=== PATIENT | female | born 1930 | race Caucasian/White ===

== ENCOUNTER 2016-06-15 19:16 | Inpatient (IN) | payer MEDICARE, BC ==
[~2016-06-15 19:16] MED LIST: cefTRIAXone 1 GM in Sodium Chloride 0.9% 100 ML IV SCH
[2016-06-15] MEDS ORDERED: Sodium Chloride 0.9% 10 ML Syringe FLUSH PRN (19:27)
--- NOTE | 2016-06-15 19:29 | EDM.PDOC ---
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 Vein Open Discontinued Medications Generic Name Dose Route Start Last Admin Trade Name Jacob PRN Reason Stop Dose Admin Sodium Chloride 500 mls @ 999 mls/hr 06/15/16 19:49 06/15/16 19:52 Normal Saline IV 06/15/16 20:19 999 mls/hr .BOLUS ONE Administration Ceftriaxone Sodium 1 gm/ 100 mls @ 200 mls/hr 06/15/16 21:34 06/15/16 21:43 Sodium Chloride IV 06/15/16 22:03 200 mls/hr ONETIME ONE Administration Levofloxacin/Dextrose 500 mg/ 100 mls @ 100 mls/hr 06/15/16 21:37 06/15/16 22 :24 Premix IV 06/15/16 22:36 100 mls/hr ONETIME ONE Administration Ceftriaxone Sodium 1 gm/ 100 mls @ 200 mls/hr 06/15/16 09:00 Sodium Chloride IV Q24H [place] Ondansetron HCl 4 mg 06/15/16 23:27 06/15/16 23:33 Zofran IVPUSH 06/15/16 23:28 4 mg ONETIME ONE Administration - Re-Assessments/Exams Free Text/Narrative Re-Assessment/Exam: 06/15/16 20:33. I was concerned after exam for urinary tension. Bladder scan did confirm that she was retaining with around 618 meals showing on the scan. In concern for UTI, possible pyelonephritis. It Was intended to do a catheter UA. With her urinary retention we will place a Trotter catheter for now. 06/15/16 21:30. Labs do show UTI with increased bacteria in the urine, this was a catheter sample so should have been sterile. She feels much better after getting her bladder decompressed. White blood count is okay but she does have a left shift. Her temp was 99.5 on arrival, we did get blood cultures x2 and also I have ordered a urine culture. Blood pressure is improved after 500 cc fluid bolus. We're continuing to run normal saline at 150 an hour. Of note her liver function studies are all elevated with AST of 720, ALT 409, alkaline phosphatase 237 bilirubin 2.0. When questioned further she has been having some upper, middle and lower chest discomfort for about a week or so. She believes that she did have her gallbladder out in [place] about 6-8 years ago. On evaluation of her abdomen I don't see a scar. It may have been done laparoscopic. She does not remember that part of it. I discussed this with Dr. Pulliam, Hospitalist for admission. He would like her to have CT of abdomen and pelvis prior to being admitted to better see what's going on upper abdomen. Her lower abdomen is fairly nontender now but she does continue to have the right upper quadrant and upper mid abdominal tenderness. Have ordered Rocephin 1 g IV. I was going to also give Zosyn IV but she does have history of penicillin allergy. Therefore we will give Levaquin 500 IV after the Rocephin has infused. 06/16/16 00:15. Radiology report shows a fullness in the pancreatic head with hypoechoic areas, common bile duct dilatation. This raises great concern for neoplasm. I discussed this with patient and also with the son who was here a while ago and now on his way home. At this time we work hard to treat the UTI, maintain hydration, work with nausea and vomiting, try keep her more comfortable and then go from there. 06/16/16 00:29 Departure - Departure Time of Disposition: 00:23 Disposition: Admitted As Inpatient 68 Clinical Impression: UTI (urinary tract infection), Urinary retention with incomplete bladder emptying, Pancreatic abnormality Referrals: Norbert Brown MD [Primary Care Provider] - Forms: ED Department Discharge ED Communication - Discussed Case With (1) Discussed Case With (1): Admitting Provider (Dr Pulliam, decision to admit at about 11:00) - My Orders Last 24 Hours: My Active Orders 06/15/16 19:27 Sodium Chloride 0.9% [Saline Flush] 10 ml FLUSH ASDIRECTED PRN 06/15/16 19:28 Peripheral IV Care [RC] . DIRECTED CULTURE BLOOD [BC] Stat Peripheral IV Insertion Adult [OM.PC] Stat 06/15/16 20:14 Trotter Catheter Insertion [Insert Urinary Catheter] [OM.PC] Stat Urinary Catheter Assessment [RC] ASDIRECTED 06/15/16 20:15 CULTURE BLOOD [BC] Stat 06/15/16 20:26 Abdomen Series w Chest 1V [CR] Stat 06/15/16 20:46 CULTURE URINE [RM] Stat 06/15/16 21:01 EKG 12 Lead [EKG Documentation Completion] [RC] STAT 06/15/16 21:34 Abdomen Pelvis w Cont [CT] Stat 06/16/16 00:15 Sodium Chloride 0.9% [Normal Saline] 1,000 ml IV ASDIRECTED - Assessment/Plan Last 24 Hours: My Active Orders 06/15/16 19:27 Sodium Chloride 0.9% [Saline Flush] 10 ml FLUSH ASDIRECTED PRN 06/15/16 19:28 Peripheral IV Care [RC] . DIRECTED CULTURE BLOOD [BC] Stat Peripheral IV Insertion Adult [OM.PC] Stat 06/15/16 20:14 Trotter Catheter Insertion [Insert Urinary Catheter] [OM.PC] Stat Urinary Catheter Assessment [RC] ASDIRECTED 06/15/16 20:15 CULTURE BLOOD [BC] Stat 06/15/16 20:26 Abdomen Series w Chest 1V [CR] Stat 06/15/16 20:46 CULTURE URINE [RM] Stat 06/15/16 21:01 EKG 12 Lead [EKG Documentation Completion] [RC] STAT 06/15/16 21:34 Abdomen Pelvis w Cont [CT] Stat 06/16/16 00:15 Sodium Chloride 0.9% [Normal Saline] 1,000 ml IV ASDIRECTED
[2016-06-15] MEDS ORDERED: Sodium Chloride 0.9% 500 ML IV ONE (19:49)
[2016-06-15] MEDS ORDERED: cefTRIAXone 1 GM in Sodium Chloride 0.9% 100 ML IV ONE (21:34)
[2016-06-15] MEDS ORDERED: Levofloxacin/Dextrose 5%-Water 500 MG in Premix Bag 1 BAG IV ONE (21:37)
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
[2016-06-15] MEDS ORDERED: Lactulose Soln 10 GM/15 ML 30 ML UD Cup PO PRN (23:03)
[2016-06-15] MEDS ORDERED: Acetaminophen 325 MG Tab PO PRN (23:03)
[2016-06-15] MEDS ORDERED: Bisacodyl 10 MG Supp RECTAL PRN (23:03)
[2016-06-15] MEDS ORDERED: Magnesium Hydroxide 400 MG/5 ML Susp 30 ML Cup PO PRN (23:03)
[2016-06-15] MEDS ORDERED: Aluminum Hydroxide/Magnesium Hydroxide/Simethicone Susp 30 ML Cup PO PRN (23:03)
[2016-06-15] MEDS ORDERED: Albuterol 0.083% 2.5 MG/3 ML Neb Soln NEB PRN (23:07)
[2016-06-15] MEDS ORDERED: Ondansetron 4 MG/2 ML SDV IV PRN (23:07)
[2016-06-15] MEDS ORDERED: Bisacodyl 5 MG Tab PO PRN (23:07)
[2016-06-15] MEDS ORDERED: Promethazine 12.5 MG in Sodium Chloride 0.9% 50 ML IV PRN (23:07)
[2016-06-15] MEDS ORDERED: Metoprolol Tartrate 5 MG/5 ML SDV IVPUSH PRN (23:11)
[2016-06-15] MEDS ORDERED: hydrALAZINE 20 MG/ML SDV IVPUSH PRN (23:11)
[2016-06-15] MEDS ORDERED: Ondansetron 4 MG/2 ML SDV IVPUSH ONE (23:27)
[2016-06-15] MEDS ORDERED: 50% Dextrose in Water 50 ML Syringe IVPUSH PRN (23:41)
[2016-06-15] MEDS ORDERED: Insulin Aspart 100 Units/ML 3 ML Pen SUBCUT SCH (23:45)
[2016-06-16] MEDS ORDERED: Sodium Chloride 0.9% 1,000 ML IV SCH (00:15)
[2016-06-16] MEDS: HYDROmorphone 0.5 MG/0.5 ML Syringe IVPUSH PRN (01:55)
[2016-06-16] MEDS: Sodium Chloride 0.9% 1,000 ML IV SCH ×2 (06:24→11:07)
[2016-06-16] MEDS: Pantoprazole 40 MG Tab.CR PO SCH (06:28)
--- NOTE | 2016-06-16 07:28 | PCM.PN ---
- General Info Date of Service: 06/16/16 Admission Dx/Problem (Free Text): Abdominal Pain Subjective Update: Follow Up Functional Status: Reports: pain controlled, tolerating diet, urinating, new symptoms. Denies: ambulating - Review of Systems General: Denies: Fever, Weakness, Fatigue, Malaise, Chills, Night Sweats HEENT: Reports: no symptoms, headaches Pulmonary: Denies: shortness of breath Cardiovascular: Denies: Chest Pain, Palpitations, Dyspnea on Exertion Gastrointestinal: Reports: Other (rectal pain). Denies: Abdominal pain, Nausea , Vomiting Genitourinary: Reports: no symptoms Musculoskeletal: Reports: no symptoms Skin: Reports: no symptoms Neurological: Reports: Difficulty Walking, Gait Disturbance. Denies: Dizziness Psychiatric: Denies: depression, mood lability, anxiety, agitation, hallucinations Systems Review Comment:: No overnight or acute issues. She slept well overnight. She has no GI complaints. She reports TORRES and hemorrhoidal pain. Her UA is pos to Lactobacillus species and her blood culture is pos for GNR x 4 bottles. She has no new complaints. - Patient Data Vitals - most recent: Last Vital Signs Temp 37.3 C 06/16/16 04:56 Pulse 92 06/16/16 04:56 Resp 18 06/16/16 04:56 BP 124/66 06/16/16 04:56 Pulse Ox 94 L 06/16/16 04:56 Weight - most recent: 67.993 kg I&O - last 24 hours: Intake & Output 06/15/16 06/16/16 06/16/16 22:59 06:59 14:59 Intake Total 723 Output Total 1100 Balance -377 Lab Results last 24 hrs: Laboratory Results - last 24 hr 06/16/16 06/16/16 Range/Units 04:46 06:26 POC Glucose 131 H (83-110) mg/dL MRSA (PCR) Negative Med Orders - Current: Current Medications Acetaminophen (Tylenol) 325 mg PO Q6H PRN PRN Reason: Pain Hydrocodone Bitart/Acetaminophen ([place] 325-5 Mg) 1 tab PO Q4H PRN PRN Reason: Pain (moderate 4-6) Al Hydroxide/Mg Hydroxide (Mag-Al Plus) 30 ml PO QID PRN PRN Reason: Heartburn Albuterol (Proventil Neb Soln) 2.5 mg NEB Q2H PRN PRN Reason: Shortness Of Breath/wheezing Aspirin (Halfprin) 81 mg PO DAILY [facility] Bisacodyl (Dulcolax) 10 mg RECTAL DAILY PRN PRN Reason: Constipation Bisacodyl (Dulcolax) 5 mg PO DAILY PRN PRN Reason: Constipation Cholecalciferol (Vitamin D3) 1,000 units PO DAILY [facility] Cyanocobalamin (Vitamin B12) 1,000 mcg PO DAILY [facility] Dextrose/Water (Dextrose 50% In Water) 50 ml IVPUSH ASDIRECTED PRN PRN Reason: Hypoglycemia Docusate Sodium (Colace) 100 mg PO BID [facility] Enoxaparin Sodium (Lovenox) 30 mg SUBCUT DAILY [facility] Fentanyl (Duragesic) 12 mcg TRDERM Q72H [facility] Ferrous Sulfate (Ferrous Sulfate) 325 mg PO DAILY [facility] Hydralazine HCl (Apresoline) 10 mg IVPUSH Q4H PRN PRN Reason: Hypertension Hydromorphone HCl (Dilaudid) 0.25 mg IVPUSH Q2H PRN PRN Reason: Pain (severe 7-10) Last Admin: 06/16/16 01:55 Dose: 0.25 mg Promethazine HCl 12.5 mg/ (Sodium Chloride) 50.5 mls @ 100 mls/hr IV Q6H PRN PRN Reason: Nausea/Vomiting Sodium Chloride (Normal Saline) 1,000 mls @ 50 mls/hr IV ASDIRECTED [facility] Last Admin: 06/16/16 06:24 Dose: 50 mls/hr Sodium Chloride (Normal Saline) 1,000 mls @ 150 mls/hr IV ASDIRECTED [facility] Last Admin: 06/16/16 00:13 Dose: 150 mls/hr Ceftriaxone Sodium 1 gm/ (Sodium Chloride) 100 mls @ 200 mls/hr IV Q24H [facility] Insulin Aspart (Novolog) 0 unit SUBCUT ASDIRECTED [facility] PRN Reason: Protocol Insulin Detemir (Levemir) 0 unit SUBCUT BEDTIME [facility] Isosorbide Mononitrate (Imdur) 15 mg PO DAILY [facility] Lactulose (Cephulac) 10 gm PO DAILY PRN PRN Reason: Constipation Levothyroxine Sodium (Levothyroxine) 175 mcg PO ACBRK [facility] Last Admin: 06/16/16 06:28 Dose: 175 mcg Losartan Potassium (Cozaar) 25 mg PO DAILY [facility] Magnesium Hydroxide (Milk Of Magnesia) 30 ml PO DAILY PRN PRN Reason: Constipation Magnesium Sulfate (Pharmacy To Dose - Magnesium Replacement) 1 dose .XX ASDIRECTED [facility] Metoprolol Succinate (Toprol Xl) 25 mg PO DAILY [facility] Metoprolol Tartrate (Lopressor) 5 mg IVPUSH Q4H PRN PRN Reason: Tachycardia Miscellaneous Information (Remove Patch) 0 ea TRDERM Q72H [facility] Multivitamins (Thera) 1 each PO DAILY [facility] Ondansetron HCl (Zofran) 4 mg IV Q6H PRN PRN Reason: Nausea/Vomiting Pantoprazole Sodium (Protonix) 40 mg PO DAILY@0700 [facility] Last Admin: 06/16/16 06:28 Dose: 40 mg Cranberry Extract [ (Cranberry] 400 Mg) 0 each PO BID [facility] Hydrocortisone 30 Gm 0 each TOP BID [facility] Liraglutide 1.2 Mg 0 each SUBCUT BEDTIME [facility] Polyethylene Glycol (Miralax) 17 gm PO DAILY [facility] Potassium Chloride (Pharmacy To Dose - Potassium Replacement) 1 dose .XX ASDIRECTED [facility] Senna/Docusate Sodium (Senna Plus) 1 tab PO BID PRN PRN Reason: Constipation Sodium Chloride (Saline Flush) 10 ml FLUSH ASDIRECTED PRN PRN Reason: Keep Vein Open Last Admin: 06/15/16 19:52 Dose: 10 ml Discontinued Medications Sodium Chloride (Normal Saline) 500 mls @ 999 mls/hr IV .BOLUS ONE Stop: 06/15/16 20:19 Last Admin: 06/15/16 19:52 Dose: 999 mls/hr Ceftriaxone Sodium 1 gm/ (Sodium Chloride) 100 mls @ 200 mls/hr IV ONETIME ONE Stop: 06/15/16 22:03 Last Admin: 06/15/16 21:43 Dose: 200 mls/hr Levofloxacin/Dextrose 500 mg/ (Premix) 100 mls @ 100 mls/hr IV ONETIME ONE Stop: 06/15/16 22:36 Last Admin: 06/15/16 22:24 Dose: 100 mls/hr Ceftriaxone Sodium 1 gm/ (Sodium Chloride) 100 mls @ 200 mls/hr IV Q24H [facility] Ondansetron HCl (Zofran) 4 mg IVPUSH ONETIME ONE Stop: 06/15/16 23:28 Last Admin: 06/15/16 23:33 Dose: 4 mg - Exam General: alert, oriented, cooperative, no acute distress HEENT: Pupils equal, Pupils reactive, EOMI, Mucous membr. moist/pink Neck: supple, trachea midline, no JVD Lungs: Clear to auscultation, Normal respiratory effort Cardiovascular: Regular Rate, Regular Rhythm, No Murmurs Abdomen: bowel sounds present, soft, no tenderness, no distension (Female) Exam: Deferred Back Exam: normal inspection, decreased range of motion Extremities: no edema, normal pulses, no tenderness/swelling, no clubbing, no cyanosis, no calf tenderness, other (bilateral lower extremity atrophy) Peripheral Pulses: 2+: dorsalis pedis (L), dorsalis pedis (R) Skin: warm, dry, intact Neurological: no new focal deficit Psy/Mental Status: alert, normal affect, normal mood - Problem List Review Problem List Initiated/Reviewed/Updated: Yes - My Orders Last 24 Hours: My Active Orders 06/16/16 01:28 Resuscitation Status Routine 06/16/16 06:04 LIPASE [CHEM] Routine 06/16/16 22:00 cefTRIAXone [Rocephin] 1 gm Sodium Chloride 0.9% [Normal Saline] 100 ml IV Q24H 06/20/16 08:00 Remove Patch 0 ea TRDERM Q72H - Plan Plan:: Assessment/Plan: Acute Bacteremia - Blood Culture x 4 bottles: GNR - Continue IV Rocephin and Meropenem Urinary Tract Infection - UA not impressive - Risk Factors: Bed bound and Urinary Incontinence - IV Rocephin 1 gram daily - UA Cx: Lactobacillus species Hepato-Biliary Disease - FLTs elevated and GGT Pos - Hepatitis Panel - Lipase: normal - Cannot r/o Malignancy - May consider MRI or hepatobiliary scintigraphy in am if CT scan is negative - Consulted Dr. Mcfarlane for further eval Hyperglycemia with DM2 - BS is now bet 131-175 - ISS and Accu-check BID - ADA diet Hyperbilirubinemia - 2/2 Above - She does not look jaundice Resolved: S/p Abdominal Pain - 2/2 below - Abdominal CT scan: - PRN Meds for symptomatic Control Chronic: CAD S/p CABG HTN HLD GERD Hx/o Recurrent UTI Back Pain DM2 Hypothyroidism Abnormal Gait Muscle Wasting/Atrophy Plan: She looks much better Routine AM Labs Continue PT/OT Consulted Dr. Singh for further eval SC/CM for d/c planning Additional orders as above Code status: DNR/DNI Spoke to family today and updated them about the abnormal findings. Informed family the finding is suspicious for cancer. Will ask Dr. Mcfarlane for further eval.
--- NOTE | 2016-06-16 08:16 | CR ---
Abdominal series: Supine and upright views of the abdomen were obtained as well as frontal view of the chest. Comparison: Previous chest x-ray of 10/04/13. Heart size and mediastinum are normal. Slight atelectasis/scarring noted within the left base. Lungs otherwise are clear. Old right upper rib fracture is seen. No free air is seen. Vascular calcification is noted. Calcification seen within the right kidney presumably due to renal calculi. Bowel gas pattern appears normal. Scoliosis is present within the spine with degenerative change. Impression: 1. Incidental findings as described above. Diagnostic code #2
[2016-06-16] MEDS: Acetaminophen/HYDROcodone 325-5 MG Tab PO PRN ×3 (08:22→21:44)
[2016-06-16] MEDS: Multivitamins,Therapeutic Tab PO SCH (08:23)
[2016-06-16] MEDS: Metoprolol Succinate 25 MG Tab.ER PO SCH (08:23)
[2016-06-16] MEDS: Polyethylene Glycol 3350 Powder 17 GM Packet PO SCH (08:25)
[2016-06-16] MEDS: Enoxaparin 40 MG/0.4 ML Syringe SUBCUT SCH (08:26)
[2016-06-16] MEDS: Isosorbide Mononitrate 30 MG Tab.ER PO SCH (08:26)
[2016-06-16] MEDS: Magnesium Oxide 400 MG Tab PO SCH ×2 (08:26→21:44)
[2016-06-16] MEDS: Cholecalciferol (Vitamin D3) 1,000 Unit Tab PO SCH (08:27)
[2016-06-16] MEDS: Aspirin 81 MG Tab.EC PO SCH (08:27)
[2016-06-16] MEDS: Docusate Sodium 100 MG Cap PO SCH ×2 (08:27→21:48)
[2016-06-16] MEDS: Ferrous Sulfate 325 MG Tab PO SCH (08:27)
[2016-06-16] MEDS: Cyanocobalamin (Vitamin B12) 1,000 MCG Tab PO SCH (08:27)
[2016-06-16] MEDS: Losartan 25 MG Tab PO SCH (08:28)
[2016-06-16] MEDS: CRANBERRY EXTRACT 400 MG PO SCH ×2 (08:30→21:09)
[2016-06-16] MEDS: HYDROCORTISONE 30 GM TOP SCH ×2 (08:30→21:09)
[2016-06-16] MEDS: Meropenem 500 MG in Sodium Chloride 0.9% 100 ML IV SCH ×2 (08:35→15:56)
--- NOTE | 2016-06-16 08:40 | CT ---
CT abdomen and pelvis Technique: Multiple axial sections were obtained from above the dome of the diaphragm inferiorly through the pubic symphysis. Intravenous and oral contrast was utilized. Delayed images were also obtained through the abdomen and pelvis. Comparison: Previous CT abdomen and pelvis exam of 06/04/13. Findings: Increased density within both lung bases most likely representing scarring. Minimal nodule is identified within the right lung base as well as a petar-fissural small nodule within the left lung base which is likely incidental. Liver shows intrahepatic biliary duct dilatation. Liver shows diffuse diminished density suspicious for fatty infiltration. Small low-density lesion is noted within the right lobe of the liver measuring approximately 1 cm. No additional abnormality definitely seen within the liver. Dilated extrahepatic duct is seen. There is dilatation of the main pancreatic duct with atrophy of the mid and distal pancreas. Soft tissue fullness is seen in the region of the neck and head of the pancreas. Calcification is seen within this area and uncertain if this is calcification within the distal CBD or within the pancreas. Difficult to exclude pancreatic carcinoma. MRI could be considered to further evaluate if clinically indicated and patient is a candidate for contrast. Kidneys show multiple small cysts and not a obstructing calculi. Adrenal glands show no nodule. Aorta shows diffuse atherosclerotic change which continues into the iliac vessels. No aneurysm is seen. Cecum lies deep within the pelvis. There is felt to be some contrast as well as stool within the colon. Appendix not seen with certainty. Trotter catheter is present within the bladder. Degenerative change and scoliosis is noted within the spine. Impression: 1. Intrahepatic and extrahepatic biliary duct dilatation. Dilated pancreatic duct with atrophy of the mid and distal pancreas. Soft tissue fullness within the neck and head of the pancreas. Difficult to exclude pancreatic carcinoma at this time. Calcification either within the pancreas or within the distal CBD is noted. If patient has no contraindications, MRI would be helpful to further evaluate. 2. Small low-density lesion within the right lobe of the liver. Differential includes a solitary small metastasis versus cyst. 3. Other incidental findings as noted above. Diagnostic code #9
[2016-06-16] MEDS ORDERED: cefTRIAXone 1 GM in Sodium Chloride 0.9% 100 ML IV SCH ×2 (09:00→22:00)
[2016-06-16] MEDS ORDERED: Triamcinolone Acetonide 0.1% Crm 15 GM Tube TOP PRN (09:48)
[2016-06-16] MEDS ORDERED: PHENOL BUCCAL PRN (09:48)
--- NOTE | 2016-06-16 10:05 | PCM.SN ---
- Free Text/Narrative Note: Called and spoke to her son and discussed the abnormal finding on ACT scan with him. He will be in today to further discuss our option related to probable pancreatic cancer.
[2016-06-16] MEDS ORDERED: Magnesium Sulfate/Water 2 GM in Premix Bag 1 BAG IV ONE (12:00)
--- NOTE | 2016-06-16 13:39 | PCM.CONSN ---
- Patient Data Vitals - most recent: Last Vital Signs Temp 98.8 F 06/16/16 07:44 Pulse 88 06/16/16 08:23 Resp 18 06/16/16 07:44 BP 118/68 06/16/16 08:23 Pulse Ox 92 L 06/16/16 10:00 Weight - most recent: 67.993 kg I&O - last 24 hours: Intake & Output 06/15/16 06/16/16 06/16/16 23:59 07:59 15:59 Intake Total 723 60 Output Total 1100 Balance -377 60 Lab Results last 24 hrs: Laboratory Results - last 24 hr 06/16/16 06/16/16 06/16/16 Range/Units 04:46 06:04 06:04 WBC 9.53 (3.98-10.04) K/mm3 RBC 3.90 L (3.98-5.22) M/mm3 Hgb 10.5 L (11.2-15.7) gm/L Hct 33.3 L (34.1-44.9) % MCV 85.4 (79.4-94.8) fl MCH 26.9 (25.6-32.2) pg MCHC 31.5 L (32.2-35.5) g/dl RDW Std Deviation 50.1 H (36.4-46.3) fL Plt Count 251 (182-369) K/mm3 MPV 10.6 (9.4-12.3) fl Neut % (Auto) 91.5 H (34.0-71.1) % Lymph % (Auto) 4.6 L (19.3-51.7) % [place] % (Auto) 3.7 L (4.7-12.5) % Eos % (Auto) 0 L (0.7-5.8) Baso % (Auto) 0.1 (0.1-1.2) % Neut # (Auto) 8.72 H (1.56-6.13) K/mm3 Lymph # (Auto) 0.44 L (1.18-3.74) K/mm3 [place] # (Auto) 0.35 (0.24-0.36) K/mm3 Eos # (Auto) 0.00 L (0.04-0.36) K/mm3 Baso # (Auto) 0.01 (0.01-0.08) K/mm3 Manual Slide Review Abnormal smear Sodium 144 (136-145) mEq/L Potassium 3.5 (3.5-5.1) mEq/L Chloride 108 H (98-107) mEq/L Carbon Dioxide 26 (21-32) mEq/L Anion Gap 13.5 (5-15) BUN 12 (7-18) mg/dL Creatinine 0.8 (0.55-1.02) mg/dL Est Cr Clr Drug Dosing 51.81 mL/min Estimated GFR (MDRD) > 60 (>60) mL/min BUN/Creatinine Ratio 15.0 (14-18) Glucose 143 H (83-115) mg/dL POC Glucose (83-110) mg/dL Calcium 8.4 L (8.5-10.1) mg/dL Magnesium 1.3 L (1.8-2.4) mg/dl Total Bilirubin (0.2-1.0) mg/dL Direct Bilirubin (0.0-0.2) mg/dl Indirect Bilirubin AST (15-37) U/L ALT (14-59) U/L Alkaline Phosphatase (46-116) U/L C-Reactive Protein 10.0 H* (<1.0) mg/dL Total Protein (6.4-8.2) g/dl Albumin (3.4-5.0) g/dl Globulin gm/dL Albumin/Globulin Ratio (1-2) Lipase (73-393) U/L MRSA (PCR) Negative 06/16/16 06/16/16 06/16/16 Range/Units 06:04 06:04 06:26 WBC (3.98-10.04) K/mm3 RBC (3.98-5.22) M/mm3 Hgb (11.2-15.7) gm/L Hct (34.1-44.9) % MCV (79.4-94.8) fl MCH (25.6-32.2) pg MCHC (32.2-35.5) g/dl RDW Std Deviation (36.4-46.3) fL Plt Count (182-369) K/mm3 MPV (9.4-12.3) fl Neut % (Auto) (34.0-71.1) % Lymph % (Auto) (19.3-51.7) % [place] % (Auto) (4.7-12.5) % Eos % (Auto) (0.7-5.8) Baso % (Auto) (0.1-1.2) % Neut # (Auto) (1.56-6.13) K/mm3 Lymph # (Auto) (1.18-3.74) K/mm3 [place] # (Auto) (0.24-0.36) K/mm3 Eos # (Auto) (0.04-0.36) K/mm3 Baso # (Auto) (0.01-0.08) K/mm3 Manual Slide Review Sodium (136-145) mEq/L Potassium (3.5-5.1) mEq/L Chloride (98-107) mEq/L Carbon Dioxide (21-32) mEq/L Anion Gap (5-15) BUN (7-18) mg/dL Creatinine (0.55-1.02) mg/dL Est Cr Clr Drug Dosing mL/min Estimated GFR (MDRD) (>60) mL/min BUN/Creatinine Ratio (14-18) Glucose (83-115) mg/dL POC Glucose 131 H (83-110) mg/dL Calcium (8.5-10.1) mg/dL Magnesium (1.8-2.4) mg/dl Total Bilirubin 2.1 H (0.2-1.0) mg/dL Direct Bilirubin 1.60 H (0.0-0.2) mg/dl Indirect Bilirubin 0.50 AST 367 H (15-37) U/L ALT 311 H (14-59) U/L Alkaline Phosphatase 210 H (46-116) U/L C-Reactive Protein (<1.0) mg/dL Total Protein 6.2 L (6.4-8.2) g/dl Albumin 2.6 L (3.4-5.0) g/dl Globulin 3.6 gm/dL Albumin/Globulin Ratio 0.7 L (1-2) Lipase 41 L (73-393) U/L MRSA (PCR) 06/16/16 Range/Units 10:42 WBC (3.98-10.04) K/mm3 RBC (3.98-5.22) M/mm3 Hgb (11.2-15.7) gm/L Hct (34.1-44.9) % MCV (79.4-94.8) fl MCH (25.6-32.2) pg MCHC (32.2-35.5) g/dl RDW Std Deviation (36.4-46.3) fL Plt Count (182-369) K/mm3 MPV (9.4-12.3) fl Neut % (Auto) (34.0-71.1) % Lymph % (Auto) (19.3-51.7) % [place] % (Auto) (4.7-12.5) % Eos % (Auto) (0.7-5.8) Baso % (Auto) (0.1-1.2) % Neut # (Auto) (1.56-6.13) K/mm3 Lymph # (Auto) (1.18-3.74) K/mm3 [place] # (Auto) (0.24-0.36) K/mm3 Eos # (Auto) (0.04-0.36) K/mm3 Baso # (Auto) (0.01-0.08) K/mm3 Manual Slide Review Sodium (136-145) mEq/L Potassium (3.5-5.1) mEq/L Chloride (98-107) mEq/L Carbon Dioxide (21-32) mEq/L Anion Gap (5-15) BUN (7-18) mg/dL Creatinine (0.55-1.02) mg/dL Est Cr Clr Drug Dosing mL/min Estimated GFR (MDRD) (>60) mL/min BUN/Creatinine Ratio (14-18) Glucose (83-115) mg/dL POC Glucose 175 H (83-110) mg/dL Calcium (8.5-10.1) mg/dL Magnesium (1.8-2.4) mg/dl Total Bilirubin (0.2-1.0) mg/dL Direct Bilirubin (0.0-0.2) mg/dl Indirect Bilirubin AST (15-37) U/L ALT (14-59) U/L Alkaline Phosphatase (46-116) U/L C-Reactive Protein (<1.0) mg/dL Total Protein (6.4-8.2) g/dl Albumin (3.4-5.0) g/dl Globulin gm/dL Albumin/Globulin Ratio (1-2) Lipase (73-393) U/L MRSA (PCR) Med Orders - Current: Current Medications Acetaminophen (Tylenol) 325 mg PO Q6H PRN PRN Reason: Pain Hydrocodone Bitart/Acetaminophen ([place] 325-5 Mg) 1 tab PO Q4H PRN PRN Reason: Pain (moderate 4-6) Last Admin: 06/16/16 08:22 Dose: 1 tab Al Hydroxide/Mg Hydroxide (Mag-Al Plus) 30 ml PO QID PRN PRN Reason: Heartburn Albuterol (Proventil Neb Soln) 2.5 mg NEB Q2H PRN PRN Reason: Shortness Of Breath/wheezing Artificial Tears (Isopto Tears 0.5% Ophth Soln) 0 ml EYEBOTH BID [facility] Aspirin (Halfprin) 81 mg PO DAILY [facility] Last Admin: 06/16/16 08:27 Dose: 81 mg Bisacodyl (Dulcolax) 10 mg RECTAL DAILY PRN PRN Reason: Constipation Bisacodyl (Dulcolax) 5 mg PO DAILY PRN PRN Reason: Constipation Cholecalciferol (Vitamin D3) 1,000 units PO DAILY [facility] Last Admin: 06/16/16 08:27 Dose: 1,000 units Cyanocobalamin (Vitamin B12) 1,000 mcg PO DAILY [facility] Last Admin: 06/16/16 08:27 Dose: 1,000 mcg Dextrose/Water (Dextrose 50% In Water) 50 ml IVPUSH ASDIRECTED PRN PRN Reason: Hypoglycemia Docusate Sodium (Colace) 100 mg PO BID [facility] Last Admin: 06/16/16 08:27 Dose: 100 mg Enoxaparin Sodium (Lovenox) 40 mg SUBCUT DAILY [facility] Last Admin: 06/16/16 08:26 Dose: 40 mg Fentanyl (Duragesic) 12 mcg TRDERM Q72H [facility] Ferrous Sulfate (Ferrous Sulfate) 325 mg PO DAILY [facility] Last Admin: 06/16/16 08:27 Dose: 325 mg Hydralazine HCl (Apresoline) 10 mg IVPUSH Q4H PRN PRN Reason: Hypertension Hydromorphone HCl (Dilaudid) 0.25 mg IVPUSH Q2H PRN PRN Reason: Pain (severe 7-10) Last Admin: 06/16/16 01:55 Dose: 0.25 mg Promethazine HCl 12.5 mg/ (Sodium Chloride) 50.5 mls @ 100 mls/hr IV Q6H PRN PRN Reason: Nausea/Vomiting Sodium Chloride (Normal Saline) 1,000 mls @ 50 mls/hr IV ASDIRECTED [facility] Last Admin: 06/16/16 11:07 Dose: 50 mls/hr Meropenem 500 mg/ Sodium (Chloride) 100 mls @ 200 mls/hr IV Q8H [facility] Last Admin: 06/16/16 08:35 Dose: 200 mls/hr Magnesium Sulfate 2 gm/ Premix 50 mls @ 25 mls/hr IV ONETIME ONE Stop: 06/16/16 13:59 Last Admin: 06/16/16 11:02 Dose: 25 mls/hr Insulin Aspart (Novolog) 0 unit SUBCUT QIDACANDBED [facility] PRN Reason: Protocol Insulin Detemir (Levemir) 0 unit SUBCUT BEDTIME [facility] Isosorbide Mononitrate (Imdur) 15 mg PO DAILY [facility] Last Admin: 06/16/16 08:26 Dose: 15 mg Lactulose (Cephulac) 10 gm PO DAILY PRN PRN Reason: Constipation Levothyroxine Sodium (Levothyroxine) 175 mcg PO ACBRK [facility] Last Admin: 06/16/16 06:28 Dose: 175 mcg Levothyroxine Sodium (Levothroid) 137 mcg PO ACBREAKFAST [facility] Losartan Potassium (Cozaar) 25 mg PO DAILY [facility] Last Admin: 06/16/16 08:28 Dose: 25 mg Magnesium Hydroxide (Milk Of Magnesia) 30 ml PO DAILY PRN PRN Reason: Constipation Magnesium Oxide (Magnesium Oxide) 400 mg PO BID [facility] Last Admin: 06/16/16 08:26 Dose: 400 mg Magnesium Sulfate (Pharmacy To Dose - Magnesium Replacement) 1 dose .XX ASDIRECTED [facility] Metoprolol Succinate (Toprol Xl) 25 mg PO DAILY [facility] Last Admin: 06/16/16 08:23 Dose: 25 mg Metoprolol Tartrate (Lopressor) 5 mg IVPUSH Q4H PRN PRN Reason: Tachycardia Miscellaneous Information (Remove Patch) 0 ea TRDERM Q72H [facility] Multivitamins (Thera) 1 each PO DAILY [facility] Last Admin: 06/16/16 08:23 Dose: 1 each Ondansetron HCl (Zofran) 4 mg IV Q6H PRN PRN Reason: Nausea/Vomiting Last Admin: 06/16/16 08:33 Dose: 4 mg Pantoprazole Sodium (Protonix) 40 mg PO DAILY@0700 [facility] Last Admin: 06/16/16 06:28 Dose: 40 mg Cranberry Extract [ (Cranberry] 400 Mg) 0 each PO BID [facility] Last Admin: 06/16/16 08:30 Dose: Not Given Hydrocortisone 30 Gm 0 each TOP BID [facility] Last Admin: 06/16/16 08:30 Dose: Not Given Liraglutide 1.2 Mg 0 each SUBCUT BEDTIME [facility] Phenol [Phenol] 2 (Sprays) 0 each BUCCAL Q4H PRN PRN Reason: Sore Throat Polyethylene Glycol (Miralax) 17 gm PO DAILY [facility] Last Admin: 06/16/16 08:25 Dose: 17 gm Potassium Chloride (Pharmacy To Dose - Potassium Replacement) 1 dose .XX ASDIRECTED [facility] Senna/Docusate Sodium (Senna Plus) 1 tab PO BID PRN PRN Reason: Constipation Senna/Docusate Sodium (Senna Plus) 1 tab PO BID [facility] Sodium Chloride (Saline Flush) 10 ml FLUSH ASDIRECTED PRN PRN Reason: Keep Vein Open Last Admin: 06/15/16 19:52 Dose: 10 ml Triamcinolone Acetonide (Triamcinolone Acetonide 0.1% Crm) 15 gm TOP BID PRN PRN Reason: Rash Discontinued Medications Sodium Chloride (Normal Saline) 500 mls @ 999 mls/hr IV .BOLUS ONE Stop: 06/15/16 20:19 Last Admin: 06/15/16 19:52 Dose: 999 mls/hr Ceftriaxone Sodium 1 gm/ (Sodium Chloride) 100 mls @ 200 mls/hr IV ONETIME ONE Stop: 06/15/16 22:03 Last Admin: 06/15/16 21:43 Dose: 200 mls/hr Levofloxacin/Dextrose 500 mg/ (Premix) 100 mls @ 100 mls/hr IV ONETIME ONE Stop: 06/15/16 22:36 Last Admin: 06/15/16 22:24 Dose: 100 mls/hr Ceftriaxone Sodium 1 gm/ (Sodium Chloride) 100 mls @ 200 mls/hr IV Q24H [facility] Sodium Chloride (Normal Saline) 1,000 mls @ 150 mls/hr IV ASDIRECTED [facility] Last Admin: 06/16/16 00:13 Dose: 150 mls/hr Ceftriaxone Sodium 1 gm/ (Sodium Chloride) 100 mls @ 200 mls/hr IV Q24H [facility] Insulin Aspart (Novolog) 0 unit SUBCUT ASDIRECTED [facility] PRN Reason: Protocol Ondansetron HCl (Zofran) 4 mg IVPUSH ONETIME ONE Stop: 06/15/16 23:28 Last Admin: 06/15/16 23:33 Dose: 4 mg Consult PN Assessment/Plan Procedures: Procedures ANTINUCLEAR ANTIBODIES (06/27/15) ASSAY OF AMYLASE (10/04/13) ASSAY OF BLOOD/URIC ACID (06/27/15) ASSAY OF LACTIC ACID (10/04/13) ASSAY OF LIPASE (10/04/13) ASSAY OF MAGNESIUM (06/27/15) ASSAY OF NATRIURETIC PEPTIDE (10/04/13) ASSAY OF PHOSPHORUS (06/04/13) ASSAY OF TROPONIN QUANT (02/18/16) ASSAY THYROID STIM HORMONE (08/01/13) BLOOD CULTURE FOR BACTERIA (06/27/15) C-REACTIVE PROTEIN (06/27/15) CCP ANTIBODY (06/27/15) CHEST X-RAY 1 VIEW FRONTAL (02/18/16) COMPLETE CBC AUTOMATED (06/04/13) COMPLETE CBC W/AUTO DIFF WBC (02/18/16) COMPREHEN METABOLIC PANEL (02/18/16) CREATINE MB FRACTION (10/04/13) CT ABD & PELV 1/> REGNS (06/04/13) CT ANGIO ABDOM W/O & W/DYE (08/01/13) CT ANGIOGRAPHY CHEST (02/18/16) ELECTROCARDIOGRAM TRACING (02/18/16) EMERGENCY DEPT VISIT (02/18/16) EVALUATE PT USE OF INHALER (08/01/13) EXTREMITY STUDY (02/18/16) EXTREMITY STUDY (06/27/15) FIBRIN DEGRADATION QUANT (02/18/16) GAIT TRAINING THERAPY (06/27/15) GLUCOSE BLOOD TEST (06/27/15) GLYCOSYLATED HEMOGLOBIN TEST (08/01/13) HT MUSCLE IMAGE SPECT MULT (03/17/16) HYDRATE IV INFUSION ADD-ON (06/27/15) INSERT BLADDER CATHETER (10/04/13) MEASURE BLOOD OXYGEN LEVEL (06/27/15) METABOLIC PANEL TOTAL CA (06/27/15) OT EVALUATION (06/27/15) PT EVALUATION (06/27/15) RBC SED RATE AUTOMATED (06/27/15) RHEUMATOID FACTOR TEST QUAL (06/27/15) ROUTINE VENIPUNCTURE (02/18/16) SELF CARE MNGMENT TRAINING (06/04/13) THER/PROPH/DIAG INJ IV PUSH (02/18/16) THER/PROPH/DIAG IV INF ADDON (10/04/13) THER/PROPH/DIAG IV INF INIT (06/27/15) THERAPEUTIC ACTIVITIES (06/27/15) THERAPEUTIC EXERCISES (06/27/15) TOTAL CORTISOL (08/01/13) TX/PRO/DX INJ NEW DRUG ADDON (02/18/16) TX/PRO/DX INJ SAME DRUG [employer] OR UNIVERSITY (02/18/16) URINALYSIS AUTO W/SCOPE (06/27/15) URINE BACTERIA CULTURE (06/04/13) URINE CULTURE/COLONY COUNT (06/27/15) X-RAY EXAM OF ABDOMEN (10/04/13) X-RAY EXAM OF ABDOMEN (08/01/13) X-RAY EXAM OF ABDOMEN (06/04/13) X-RAY EXAM OF HAND (06/27/15) Problem List Initiated/Reviewed/Updated: Yes Plan: surgical consult dictated PITO
[2016-06-16] MEDS: Insulin Aspart 100 Units/ML 3 ML Pen SUBCUT SCH ×2 (17:47→21:47)
[2016-06-16] MEDS: Liraglutide 1.2 MG SUBCUT SCH (21:10)
[2016-06-16] MEDS: Hypromellose 0.5% Ophth Soln 15 ML Bottle EYEBOTH SCH (21:45)
[2016-06-16] MEDS: Insulin Detemir 100 Units/ML 3 ML Pen SUBCUT SCH (21:46)
[2016-06-17] MEDS: Meropenem 500 MG in Sodium Chloride 0.9% 100 ML IV SCH ×3 (01:23→16:46)
[2016-06-17] MEDS: Acetaminophen/HYDROcodone 325-5 MG Tab PO PRN ×4 (03:27→22:15)
[2016-06-17] MEDS: Sodium Chloride 0.9% 1,000 ML IV SCH (06:52)
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
[2016-06-17] MEDS ORDERED: fentaNYL 12 MCG/HR Transdermal Patch TRDERM SCH (08:00)
[2016-06-17] MEDS ORDERED: Magnesium Sulfate/Water 2 GM in Premix Bag 1 BAG IV ONE (08:30)
[2016-06-17] MEDS: Hypromellose 0.5% Ophth Soln 15 ML Bottle EYEBOTH SCH ×2 (08:45→21:49)
[2016-06-17] MEDS: Enoxaparin 40 MG/0.4 ML Syringe SUBCUT SCH (08:47)
[2016-06-17] MEDS ORDERED: Sodium Chloride 0.9% 10 ML Syringe FLUSH PRN (09:32)
[2016-06-17] MEDS ORDERED: Gadobenate Dimeglumine 529 MG/ML 15 ML SDV IVPUSH ONE (09:32)
[2016-06-17] MEDS: Cholecalciferol (Vitamin D3) 1,000 Unit Tab PO SCH (11:16)
[2016-06-17] MEDS: Isosorbide Mononitrate 30 MG Tab.ER PO SCH (11:16)
[2016-06-17] MEDS: Metoprolol Succinate 25 MG Tab.ER PO SCH (11:16)
[2016-06-17] MEDS: Aspirin 81 MG Tab.EC PO SCH (11:16)
[2016-06-17] MEDS: Multivitamins,Therapeutic Tab PO SCH (11:18)
[2016-06-17] MEDS: Cyanocobalamin (Vitamin B12) 1,000 MCG Tab PO SCH (11:18)
[2016-06-17] MEDS: Losartan 25 MG Tab PO SCH (11:19)
[2016-06-17] MEDS: Pantoprazole 40 MG Tab.CR PO SCH (11:19)
[2016-06-17] MEDS: Ferrous Sulfate 325 MG Tab PO SCH (11:19)
[2016-06-17] MEDS: Magnesium Oxide 400 MG Tab PO SCH (11:19)
[2016-06-17] MEDS: Docusate Sodium 100 MG Cap PO SCH ×2 (11:19→21:49)
[2016-06-17] MEDS: Insulin Aspart 100 Units/ML 3 ML Pen SUBCUT SCH ×3 (11:19→22:11)
[2016-06-17] MEDS: HYDROCORTISONE 30 GM TOP SCH ×2 (11:28→21:51)
[2016-06-17] MEDS: Polyethylene Glycol 3350 Powder 17 GM Packet PO SCH (11:28)
[2016-06-17] MEDS: CRANBERRY EXTRACT 400 MG PO SCH ×2 (11:28→21:50)
--- NOTE | 2016-06-17 13:26 | MR ---
MRI abdomen (with and without contrast, MR cholangiogram) Technique: Various sequences were obtained in axial and coronal planes. Post-contrast images were also obtained through the pancreas. MR cholangiogram study performed. Findings: On one of the heavily T2-weighted images there is a low signal mass being seen within the body and neck of the pancreas. In this area there is obstruction and narrowing of the common bile duct and pancreatic duct. These findings are felt compatible with pancreatic mass. This mass measures approximately 3.6 cm x 3.5 cm. Mass is less well appreciated on other sequences with enhancement appearing fairly similar to other portions of the pancreas. No abnormality is seen within the liver other than intrahepatic biliary dilatation. Multiple cysts are seen within both kidneys. Body and tail of the pancreas are atrophied. Impression: 1. Intrahepatic and extrahepatic biliary duct dilatation as well as dilated pancreatic duct. 2. Mass identified within the pancreas. Mass is poorly seen on multiple sequences but best identified on heavily T2 weighted sequence. Mass measures about 3.6 x 3.5 cm and occurs in the area of narrowing and obstruction of the CBD and pancreatic duct. 3. Incidental cysts within both kidneys. 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 Clair Hinojosa at 12:06 on 06/17/2016
[2016-06-17] MEDS: HYDROmorphone 0.5 MG/0.5 ML Syringe IVPUSH PRN (13:45)
--- NOTE | 2016-06-17 14:37 | PCM.PN ---
- General Info Date of Service: 06/17/16 Functional Status: Reports: pain controlled, tolerating diet - Review of Systems General: Reports: No Symptoms HEENT: Reports: no symptoms Pulmonary: Reports: no symptoms Cardiovascular: Reports: No Symptoms Gastrointestinal: Reports: Other (painful hemorrhoids). Denies: No symptoms Genitourinary: Reports: no symptoms Musculoskeletal: Reports: no symptoms Skin: Reports: no symptoms Neurological: Reports: Difficulty Walking, Weakness. Denies: No Symptoms Psychiatric: Reports: no symptoms - Patient Data Vitals - most recent: Last Vital Signs Temp 37.2 C 06/17/16 08:08 Pulse 77 06/17/16 11:16 Resp 15 06/17/16 08:08 BP 148/82 H 06/17/16 11:19 Pulse Ox 95 06/17/16 08:08 Weight - most recent: 69.218 kg I&O - last 24 hours: Intake & Output 06/16/16 06/17/16 06/17/16 22:59 06:59 14:59 Intake Total 1540 1180 Output Total 300 400 Balance 1240 780 Lab Results last 24 hrs: Laboratory Results - last 24 hr 06/16/16 06/16/16 06/17/16 Range/Units 17:34 21:31 06:30 WBC 7.07 (3.98-10.04) K/mm3 RBC 3.98 (3.98-5.22) M/mm3 Hgb 10.8 L (11.2-15.7) gm/L Hct 34.2 (34.1-44.9) % MCV 85.9 (79.4-94.8) fl MCH 27.1 (25.6-32.2) pg MCHC 31.6 L (32.2-35.5) g/dl RDW Std Deviation 52.9 H (36.4-46.3) fL Plt Count 240 (182-369) K/mm3 MPV 10.5 (9.4-12.3) fl Neut % (Auto) 81.8 H (34.0-71.1) % Lymph % (Auto) 9.1 L (19.3-51.7) % Payne % (Auto) 7.1 (4.7-12.5) % Eos % (Auto) 1.6 (0.7-5.8) Baso % (Auto) 0.1 (0.1-1.2) % Neut # (Auto) 5.79 (1.56-6.13) K/mm3 Lymph # (Auto) 0.64 L (1.18-3.74) K/mm3 Payne # (Auto) 0.50 H (0.24-0.36) K/mm3 Eos # (Auto) 0.11 (0.04-0.36) K/mm3 Baso # (Auto) 0.01 (0.01-0.08) K/mm3 Manual Slide Review Abnormal smear POC Glucose 149 H 164 H (83-110) mg/dL Magnesium (1.8-2.4) mg/dl C-Reactive Protein (<1.0) mg/dL 06/17/16 06/17/16 06/17/16 Range/Units 06:30 06:37 07:00 WBC (3.98-10.04) K/mm3 RBC (3.98-5.22) M/mm3 Hgb (11.2-15.7) gm/L Hct (34.1-44.9) % MCV (79.4-94.8) fl MCH (25.6-32.2) pg MCHC (32.2-35.5) g/dl RDW Std Deviation (36.4-46.3) fL Plt Count (182-369) K/mm3 MPV (9.4-12.3) fl Neut % (Auto) (34.0-71.1) % Lymph % (Auto) (19.3-51.7) % Payne % (Auto) (4.7-12.5) % Eos % (Auto) (0.7-5.8) Baso % (Auto) (0.1-1.2) % Neut # (Auto) (1.56-6.13) K/mm3 Lymph # (Auto) (1.18-3.74) K/mm3 Payne # (Auto) (0.24-0.36) K/mm3 Eos # (Auto) (0.04-0.36) K/mm3 Baso # (Auto) (0.01-0.08) K/mm3 Manual Slide Review POC Glucose 52 L 182 H (83-110) mg/dL Magnesium 1.8 (1.8-2.4) mg/dl C-Reactive Protein 12.8 H* (<1.0) mg/dL 06/17/16 Range/Units 11:04 WBC (3.98-10.04) K/mm3 RBC (3.98-5.22) M/mm3 Hgb (11.2-15.7) gm/L Hct (34.1-44.9) % MCV (79.4-94.8) fl MCH (25.6-32.2) pg MCHC (32.2-35.5) g/dl RDW Std Deviation (36.4-46.3) fL Plt Count (182-369) K/mm3 MPV (9.4-12.3) fl Neut % (Auto) (34.0-71.1) % Lymph % (Auto) (19.3-51.7) % Payne % (Auto) (4.7-12.5) % Eos % (Auto) (0.7-5.8) Baso % (Auto) (0.1-1.2) % Neut # (Auto) (1.56-6.13) K/mm3 Lymph # (Auto) (1.18-3.74) K/mm3 Payne # (Auto) (0.24-0.36) K/mm3 Eos # (Auto) (0.04-0.36) K/mm3 Baso # (Auto) (0.01-0.08) K/mm3 Manual Slide Review POC Glucose 57 L (83-110) mg/dL Magnesium (1.8-2.4) mg/dl C-Reactive Protein (<1.0) mg/dL Med Orders - Current: Current Medications Acetaminophen (Tylenol) 325 mg PO Q6H PRN PRN Reason: Pain Hydrocodone Bitart/Acetaminophen (Waldorf 325-5 Mg) 1 tab PO Q4H PRN PRN Reason: Pain (moderate 4-6) Last Admin: 06/17/16 11:18 Dose: 1 tab Al Hydroxide/Mg Hydroxide (Mag-Al Plus) 30 ml PO QID PRN PRN Reason: Heartburn Albuterol (Proventil Neb Soln) 2.5 mg NEB Q2H PRN PRN Reason: Shortness Of Breath/wheezing Artificial Tears (Isopto Tears 0.5% Ophth Soln) 0 ml EYEBOTH BID [facility] Last Admin: 06/17/16 08:45 Dose: 2 drop Aspirin (Halfprin) 81 mg PO DAILY [facility] Last Admin: 06/17/16 11:16 Dose: 81 mg Bisacodyl (Dulcolax) 10 mg RECTAL DAILY PRN PRN Reason: Constipation Bisacodyl (Dulcolax) 5 mg PO DAILY PRN PRN Reason: Constipation Cholecalciferol (Vitamin D3) 1,000 units PO DAILY [facility] Last Admin: 06/17/16 11:16 Dose: 1,000 units Cyanocobalamin (Vitamin B12) 1,000 mcg PO DAILY [facility] Last Admin: 06/17/16 11:18 Dose: 1,000 mcg Dextrose/Water (Dextrose 50% In Water) 50 ml IVPUSH ASDIRECTED PRN PRN Reason: Hypoglycemia Last Admin: 06/17/16 06:49 Dose: 50 ml Docusate Sodium (Colace) 100 mg PO BID [facility] Last Admin: 06/17/16 11:19 Dose: 100 mg Enoxaparin Sodium (Lovenox) 40 mg SUBCUT DAILY [facility] Last Admin: 06/17/16 08:47 Dose: 40 mg Fentanyl (Duragesic) 12 mcg TRDERM Q72H [facility] Last Admin: 06/17/16 08:44 Dose: 12 mcg Ferrous Sulfate (Ferrous Sulfate) 325 mg PO DAILY [facility] Last Admin: 06/17/16 11:19 Dose: 325 mg Hydralazine HCl (Apresoline) 10 mg IVPUSH Q4H PRN PRN Reason: Hypertension Hydromorphone HCl (Dilaudid) 0.25 mg IVPUSH Q2H PRN PRN Reason: Pain (severe 7-10) Last Admin: 06/17/16 13:45 Dose: 0.25 mg Promethazine HCl 12.5 mg/ (Sodium Chloride) 50.5 mls @ 100 mls/hr IV Q6H PRN PRN Reason: Nausea/Vomiting Sodium Chloride (Normal Saline) 1,000 mls @ 50 mls/hr IV ASDIRECTED [facility] Last Admin: 06/17/16 06:52 Dose: 50 mls/hr Meropenem 500 mg/ Sodium (Chloride) 100 mls @ 200 mls/hr IV Q8H [facility] Last Admin: 06/17/16 08:41 Dose: 200 mls/hr Insulin Aspart (Novolog) 0 unit SUBCUT QIDACANDBED [facility] PRN Reason: Protocol Last Admin: 06/17/16 11:19 Dose: Not Given Insulin Detemir (Levemir) 0 unit SUBCUT BEDTIME [facility] Last Admin: 06/16/16 21:46 Dose: 25 units Isosorbide Mononitrate (Imdur) 15 mg PO DAILY [facility] Last Admin: 06/17/16 11:16 Dose: 15 mg Lactulose (Cephulac) 10 gm PO DAILY PRN PRN Reason: Constipation Levothyroxine Sodium (Levothroid) 137 mcg PO ACBREAKFAST [facility] Last Admin: 06/17/16 11:23 Dose: Not Given Losartan Potassium (Cozaar) 25 mg PO DAILY [facility] Last Admin: 06/17/16 11:19 Dose: 25 mg Magnesium Hydroxide (Milk Of Magnesia) 30 ml PO DAILY PRN PRN Reason: Constipation Magnesium Oxide (Magnesium Oxide) 400 mg PO DAILY [facility] Last Admin: 06/17/16 11:19 Dose: 400 mg Metoprolol Succinate (Toprol Xl) 25 mg PO DAILY [facility] Last Admin: 06/17/16 11:16 Dose: 25 mg Metoprolol Tartrate (Lopressor) 5 mg IVPUSH Q4H PRN PRN Reason: Tachycardia Miscellaneous Information (Remove Patch) 0 ea TRDERM Q72H [facility] Multivitamins (Thera) 1 each PO DAILY [facility] Last Admin: 06/17/16 11:18 Dose: 1 each Ondansetron HCl (Zofran) 4 mg IV Q6H PRN PRN Reason: Nausea/Vomiting Last Admin: 06/16/16 08:33 Dose: 4 mg Pantoprazole Sodium (Protonix) 40 mg PO DAILY@0700 [facility] Last Admin: 06/17/16 11:19 Dose: 40 mg Cranberry Extract [ (Cranberry] 400 Mg) 0 each PO BID [facility] Last Admin: 06/17/16 11:28 Dose: Not Given Hydrocortisone 30 Gm 0 each TOP BID [facility] Last Admin: 06/17/16 11:28 Dose: Not Given Liraglutide 1.2 Mg 0 each SUBCUT BEDTIME [facility] Last Admin: 06/16/16 21:10 Dose: Not Given Phenol [Phenol] 2 (Sprays) 0 each BUCCAL Q4H PRN PRN Reason: Sore Throat Polyethylene Glycol (Miralax) 17 gm PO DAILY [facility] Last Admin: 06/17/16 11:28 Dose: 17 gm Senna/Docusate Sodium (Senna Plus) 1 tab PO BID PRN PRN Reason: Constipation Senna/Docusate Sodium (Senna Plus) 1 tab PO BID [facility] Last Admin: 06/17/16 11:28 Dose: 1 tab Sodium Chloride (Saline Flush) 10 ml FLUSH ONETIME PRN PRN Reason: Keep Vein Open Stop: 06/17/16 16:00 Last Admin: 06/17/16 10:59 Dose: 10 ml Triamcinolone Acetonide (Triamcinolone Acetonide 0.1% Crm) 15 gm TOP BID PRN PRN Reason: Rash Discontinued Medications Gadobenate Dimeglumine (Multihance) 14 ml IVPUSH ONETIME ONE Stop: 06/17/16 09:33 Last Admin: 06/17/16 10:58 Dose: 14 ml Sodium Chloride (Normal Saline) 500 mls @ 999 mls/hr IV .BOLUS ONE Stop: 06/15/16 20:19 Last Admin: 06/15/16 19:52 Dose: 999 mls/hr Ceftriaxone Sodium 1 gm/ (Sodium Chloride) 100 mls @ 200 mls/hr IV ONETIME ONE Stop: 06/15/16 22:03 Last Admin: 06/15/16 21:43 Dose: 200 mls/hr Levofloxacin/Dextrose 500 mg/ (Premix) 100 mls @ 100 mls/hr IV ONETIME ONE Stop: 06/15/16 22:36 Last Admin: 06/15/16 22:24 Dose: 100 mls/hr Ceftriaxone Sodium 1 gm/ (Sodium Chloride) 100 mls @ 200 mls/hr IV Q24H [facility] Last Admin: 06/16/16 21:14 Dose: Not Given Sodium Chloride (Normal Saline) 1,000 mls @ 150 mls/hr IV ASDIRECTED [facility] Last Admin: 06/16/16 00:13 Dose: 150 mls/hr Ceftriaxone Sodium 1 gm/ (Sodium Chloride) 100 mls @ 200 mls/hr IV Q24H [facility] Magnesium Sulfate 2 gm/ Premix 50 mls @ 25 mls/hr IV ONETIME ONE Stop: 06/16/16 13:59 Last Admin: 06/16/16 11:02 Dose: 25 mls/hr Magnesium Sulfate 2 gm/ Premix 50 mls @ 25 mls/hr IV ONETIME ONE Stop: 06/17/16 10:29 Last Admin: 06/17/16 08:41 Dose: 25 mls/hr Insulin Aspart (Novolog) 0 unit SUBCUT ASDIRECTED [facility] PRN Reason: Protocol Levothyroxine Sodium (Levothyroxine) 175 mcg PO ACBRK [facility] Last Admin: 06/17/16 06:25 Dose: Not Given Magnesium Oxide (Magnesium Oxide) 400 mg PO BID [facility] Last Admin: 06/16/16 21:44 Dose: 400 mg Magnesium Sulfate (Pharmacy To Dose - Magnesium Replacement) 1 dose .XX ASDIRECTED [facility] Ondansetron HCl (Zofran) 4 mg IVPUSH ONETIME ONE Stop: 06/15/16 23:28 Last Admin: 06/15/16 23:33 Dose: 4 mg Potassium Chloride (Pharmacy To Dose - Potassium Replacement) 1 dose .XX ASDIRECTED [facility] Sodium Chloride (Saline Flush) 10 ml FLUSH ASDIRECTED PRN PRN Reason: Keep Vein Open Last Admin: 06/15/16 19:52 Dose: 10 ml - Exam Quality Assessment: DVT prophylaxis General: alert, oriented, cooperative, no acute distress HEENT: Pupils equal, Pupils reactive, EOMI Neck: supple, trachea midline Lungs: Normal respiratory effort Cardiovascular: Regular Rate Abdomen: bowel sounds present, soft, no tenderness, no distension (Female) Exam: Deferred Back Exam: normal inspection Extremities: normal pulses Skin: warm Neurological: no new focal deficit Psy/Mental Status: alert - Problem List Review Problem List Initiated/Reviewed/Updated: Yes - My Orders Last 24 Hours: My Active Orders 06/17/16 13:23 Consult to Physician [CONS] Routine 06/17/16 13:24 Notify Provider Consults [RC] ASDIRECTED - Plan Plan:: Assessment/Plan: Acute Abdominal Pain - 2/2 below - MRCP: pancreatic mass, near CBD and pancreatic duct, 3.6 cm x 3.5 cm - PRN Meds for symptomatic Control Mild UTI - UA not impressive - Risk Factors: Bed bound and Urinary Incontinence - IV Rocephin 1 gram daily - UA Cx/Sx Hepato-Biliary Disease - FLTS elevated and GGT Pos - Hepatitis Panel - Lipase level - Cannot r/o Malignancy - May consider hepatobiliary scintigraphy in am if CT scan is negative - Seen by Dr. Mcfarlane today Hyperglycemia with DM2 - BS 208 - ISS and Accu-check BID - ADA diet Depression -Consult Dr Ackerman Chronic: CAD S/p CABG HTN HLD GERD Hx/o Recurrent UTI Back Pain DM2 Hypothyroidism Abnormal Gait Muscle Wasting/Atrophy Plan: Will need referral to [facility] for findings as mentioned. Admit to the floor Routine AM Labs Resume Home Meds PT/OT eval SC/CM for d/c planning Additional orders as above Code status: DNR/DNI
[2016-06-17] MEDS: Insulin Detemir 100 Units/ML 3 ML Pen SUBCUT SCH (22:07)
[2016-06-17] MEDS: Liraglutide 1.2 MG SUBCUT SCH (22:09)
[2016-06-18] MEDS: Sodium Chloride 0.9% 1,000 ML IV SCH ×2 (01:01→20:06)
[2016-06-18] MEDS: Meropenem 500 MG in Sodium Chloride 0.9% 100 ML IV SCH ×3 (01:02→16:49)
[2016-06-18] MEDS: Acetaminophen/HYDROcodone 325-5 MG Tab PO PRN ×3 (03:37→21:19)
[2016-06-18] MEDS: HYDROmorphone 0.5 MG/0.5 ML Syringe IVPUSH PRN (05:39)
[2016-06-18] MEDS: Pantoprazole 40 MG Tab.CR PO SCH ×2 (05:42→07:56)
[2016-06-18] MEDS: Insulin Aspart 100 Units/ML 3 ML Pen SUBCUT SCH ×4 (07:47→21:19)
[2016-06-18] MEDS: fentaNYL 25 MCG/HR Transdermal Patch TRDERM SCH (08:22)
[2016-06-18] MEDS: Polyethylene Glycol 3350 Powder 17 GM Packet PO SCH (09:27)
[2016-06-18] MEDS: Hypromellose 0.5% Ophth Soln 15 ML Bottle EYEBOTH SCH ×2 (09:29→20:07)
[2016-06-18] MEDS: CRANBERRY EXTRACT 400 MG PO SCH ×2 (09:30→20:54)
[2016-06-18] MEDS: HYDROCORTISONE 30 GM TOP SCH ×2 (09:30→20:54)
[2016-06-18] MEDS: Magnesium Oxide 400 MG Tab PO SCH (09:31)
[2016-06-18] MEDS: Aspirin 81 MG Tab.EC PO SCH (09:32)
[2016-06-18] MEDS: Multivitamins,Therapeutic Tab PO SCH (09:32)
[2016-06-18] MEDS: Cyanocobalamin (Vitamin B12) 1,000 MCG Tab PO SCH (09:32)
[2016-06-18] MEDS: Cholecalciferol (Vitamin D3) 1,000 Unit Tab PO SCH (09:33)
[2016-06-18] MEDS: Metoprolol Succinate 25 MG Tab.ER PO SCH (09:33)
[2016-06-18] MEDS: Docusate Sodium 100 MG Cap PO SCH ×2 (09:33→20:54)
[2016-06-18] MEDS: Losartan 25 MG Tab PO SCH (09:34)
[2016-06-18] MEDS: Isosorbide Mononitrate 30 MG Tab.ER PO SCH (09:34)
[2016-06-18] MEDS: Enoxaparin 40 MG/0.4 ML Syringe SUBCUT SCH (09:35)
--- NOTE | 2016-06-18 14:45 | PCM.PN ---
<Humera Maier M - Last Filed: 06/18/16 14:40> - General Info Date of Service: 06/18/16 Admission Dx/Problem (Free Text): Abdominal Pain Shakira is seen this morning with daughter present in room. she is feeling stronger, appetite is better. Voiding without difficulty now, no dysuria. VSS. I review findings of MRCP with patient and daughter today Functional Status: Reports: pain controlled, tolerating diet, ambulating, urinating. Denies: new symptoms - Review of Systems General: Reports: No Symptoms HEENT: Reports: no symptoms Pulmonary: Reports: no symptoms Cardiovascular: Reports: No Symptoms Gastrointestinal: Reports: No symptoms. Denies: Abdominal pain Genitourinary: Reports: no symptoms. Denies: dysuria, frequency, burning, urgency Musculoskeletal: Reports: no symptoms Skin: Reports: no symptoms Neurological: Reports: No Symptoms Psychiatric: Reports: no symptoms - Patient Data Vitals - most recent: Last Vital Signs Temp 99.0 F 06/18/16 08:44 Pulse 75 06/18/16 09:33 Resp 20 06/18/16 08:44 BP 160/87 H 06/18/16 09:34 Pulse Ox 93 L 06/18/16 08:44 Weight - most recent: 69.808 kg I&O - last 24 hours: Intake & Output 06/17/16 06/18/16 06/18/16 22:59 06:59 14:59 Intake Total 850 1069 330 Output Total 900 Balance -50 1069 330 Lab Results last 24 hrs: Laboratory Results - last 24 hr 06/17/16 06/17/16 06/18/16 Range/Units 16:42 22:05 06:09 WBC 4.68 (3.98-10.04) K/mm3 RBC 3.93 L (3.98-5.22) M/mm3 Hgb 10.6 L (11.2-15.7) gm/L Hct 33.7 L (34.1-44.9) % MCV 85.8 (79.4-94.8) fl MCH 27.0 (25.6-32.2) pg MCHC 31.5 L (32.2-35.5) g/dl RDW Std Deviation 53.1 H (36.4-46.3) fL Plt Count 221 (182-369) K/mm3 MPV 10.4 (9.4-12.3) fl Neut % (Auto) 74.4 H (34.0-71.1) % Lymph % (Auto) 13.9 L (19.3-51.7) % Gates % (Auto) 8.3 (4.7-12.5) % Eos % (Auto) 3.0 (0.7-5.8) Baso % (Auto) 0.2 (0.1-1.2) % Neut # (Auto) 3.48 (1.56-6.13) K/mm3 Lymph # (Auto) 0.65 L (1.18-3.74) K/mm3 Gates # (Auto) 0.39 H (0.24-0.36) K/mm3 Eos # (Auto) 0.14 (0.04-0.36) K/mm3 Baso # (Auto) 0.01 (0.01-0.08) K/mm3 POC Glucose 83 166 H (83-110) mg/dL Magnesium (1.8-2.4) mg/dl C-Reactive Protein (<1.0) mg/dL 06/18/16 06/18/16 06/18/16 Range/Units 06:09 07:02 07:56 WBC (3.98-10.04) K/mm3 RBC (3.98-5.22) M/mm3 Hgb (11.2-15.7) gm/L Hct (34.1-44.9) % MCV (79.4-94.8) fl MCH (25.6-32.2) pg MCHC (32.2-35.5) g/dl RDW Std Deviation (36.4-46.3) fL Plt Count (182-369) K/mm3 MPV (9.4-12.3) fl Neut % (Auto) (34.0-71.1) % Lymph % (Auto) (19.3-51.7) % Gates % (Auto) (4.7-12.5) % Eos % (Auto) (0.7-5.8) Baso % (Auto) (0.1-1.2) % Neut # (Auto) (1.56-6.13) K/mm3 Lymph # (Auto) (1.18-3.74) K/mm3 Gates # (Auto) (0.24-0.36) K/mm3 Eos # (Auto) (0.04-0.36) K/mm3 Baso # (Auto) (0.01-0.08) K/mm3 POC Glucose 52 L 62 L (83-110) mg/dL Magnesium 2.0 (1.8-2.4) mg/dl C-Reactive Protein 7.1 H* (<1.0) mg/dL 06/18/16 Range/Units 10:59 WBC (3.98-10.04) K/mm3 RBC (3.98-5.22) M/mm3 Hgb (11.2-15.7) gm/L Hct (34.1-44.9) % MCV (79.4-94.8) fl MCH (25.6-32.2) pg MCHC (32.2-35.5) g/dl RDW Std Deviation (36.4-46.3) fL Plt Count (182-369) K/mm3 MPV (9.4-12.3) fl Neut % (Auto) (34.0-71.1) % Lymph % (Auto) (19.3-51.7) % Gates % (Auto) (4.7-12.5) % Eos % (Auto) (0.7-5.8) Baso % (Auto) (0.1-1.2) % Neut # (Auto) (1.56-6.13) K/mm3 Lymph # (Auto) (1.18-3.74) K/mm3 Gates # (Auto) (0.24-0.36) K/mm3 Eos # (Auto) (0.04-0.36) K/mm3 Baso # (Auto) (0.01-0.08) K/mm3 POC Glucose 107 (83-110) mg/dL Magnesium (1.8-2.4) mg/dl C-Reactive Protein (<1.0) mg/dL Med Orders - Current: Current Medications Acetaminophen (Tylenol) 325 mg PO Q6H PRN PRN Reason: Pain Hydrocodone Bitart/Acetaminophen ([place] 325-5 Mg) 1 tab PO Q4H PRN PRN Reason: Pain (moderate 4-6) Last Admin: 06/18/16 03:37 Dose: 1 tab Al Hydroxide/Mg Hydroxide (Mag-Al Plus) 30 ml PO QID PRN PRN Reason: Heartburn Albuterol (Proventil Neb Soln) 2.5 mg NEB Q2H PRN PRN Reason: Shortness Of Breath/wheezing Artificial Tears (Isopto Tears 0.5% Ophth Soln) 0 ml EYEBOTH BID [facility] Last Admin: 06/18/16 09:29 Dose: 1 drop Aspirin (Halfprin) 81 mg PO DAILY [facility] Last Admin: 06/18/16 09:32 Dose: 81 mg Bisacodyl (Dulcolax) 10 mg RECTAL DAILY PRN PRN Reason: Constipation Bisacodyl (Dulcolax) 5 mg PO DAILY PRN PRN Reason: Constipation Cholecalciferol (Vitamin D3) 1,000 units PO DAILY [facility] Last Admin: 06/18/16 09:33 Dose: 1,000 units Cyanocobalamin (Vitamin B12) 1,000 mcg PO DAILY [facility] Last Admin: 06/18/16 09:32 Dose: 1,000 mcg Dextrose/Water (Dextrose 50% In Water) 50 ml IVPUSH ASDIRECTED PRN PRN Reason: Hypoglycemia Last Admin: 06/17/16 06:49 Dose: 50 ml Docusate Sodium (Colace) 100 mg PO BID [facility] Last Admin: 06/18/16 09:33 Dose: 100 mg Enoxaparin Sodium (Lovenox) 40 mg SUBCUT DAILY [facility] Last Admin: 06/18/16 09:35 Dose: 40 mg Fentanyl (Duragesic) 25 mcg TRDERM Q72H [facility] Last Admin: 06/18/16 08:22 Dose: 25 mcg Ferrous Sulfate (Ferrous Sulfate) 325 mg PO BIDMEALS [facility] Hydralazine HCl (Apresoline) 10 mg IVPUSH Q4H PRN PRN Reason: Hypertension Hydromorphone HCl (Dilaudid) 0.25 mg IVPUSH Q2H PRN PRN Reason: Pain (severe 7-10) Last Admin: 06/18/16 05:39 Dose: 0.25 mg Promethazine HCl 12.5 mg/ (Sodium Chloride) 50.5 mls @ 100 mls/hr IV Q6H PRN PRN Reason: Nausea/Vomiting Sodium Chloride (Normal Saline) 1,000 mls @ 50 mls/hr IV ASDIRECTED [facility] Last Admin: 06/18/16 01:01 Dose: 50 mls/hr Meropenem 500 mg/ Sodium (Chloride) 100 mls @ 200 mls/hr IV Q8H [facility] Last Admin: 06/18/16 09:26 Dose: 200 mls/hr Insulin Aspart (Novolog) 0 unit SUBCUT QIDACANDBED [facility] PRN Reason: Protocol Last Admin: 06/18/16 11:18 Dose: Not Given Insulin Detemir (Levemir) 12.5 unit SUBCUT BID [facility] Isosorbide Mononitrate (Imdur) 15 mg PO DAILY [facility] Last Admin: 06/18/16 09:34 Dose: 15 mg Lactulose (Cephulac) 10 gm PO DAILY PRN PRN Reason: Constipation Levothyroxine Sodium (Levothroid) 137 mcg PO ACBREAKFAST [facility] Last Admin: 06/18/16 05:41 Dose: 137 mcg Losartan Potassium (Cozaar) 25 mg PO DAILY [facility] Last Admin: 06/18/16 09:34 Dose: 25 mg Magnesium Hydroxide (Milk Of Magnesia) 30 ml PO DAILY PRN PRN Reason: Constipation Magnesium Oxide (Magnesium Oxide) 400 mg PO DAILY [facility] Last Admin: 06/18/16 09:31 Dose: 400 mg Metoprolol Succinate (Toprol Xl) 25 mg PO DAILY [facility] Last Admin: 06/18/16 09:33 Dose: 25 mg Metoprolol Tartrate (Lopressor) 5 mg IVPUSH Q4H PRN PRN Reason: Tachycardia Miscellaneous Information (Remove Patch) 0 ea TRDERM Q72H [facility] Multivitamins (Thera) 1 each PO DAILY [facility] Last Admin: 06/18/16 09:32 Dose: 1 each Ondansetron HCl (Zofran) 4 mg IV Q6H PRN PRN Reason: Nausea/Vomiting Last Admin: 06/16/16 08:33 Dose: 4 mg Pantoprazole Sodium (Protonix) 40 mg PO DAILY@0700 [facility] Last Admin: 06/18/16 07:56 Dose: Not Given Cranberry Extract [ (Cranberry] 400 Mg) 0 each PO BID [facility] Last Admin: 06/18/16 09:30 Dose: Not Given Hydrocortisone 30 Gm 0 each TOP BID [facility] Last Admin: 06/18/16 09:30 Dose: Not Given Liraglutide 1.2 Mg 0 each SUBCUT BEDTIME [facility] Last Admin: 06/17/16 22:09 Dose: Not Given Phenol [Phenol] 2 (Sprays) 0 each BUCCAL Q4H PRN PRN Reason: Sore Throat Polyethylene Glycol (Miralax) 17 gm PO DAILY [facility] Last Admin: 06/18/16 09:27 Dose: 17 gm Senna/Docusate Sodium (Senna Plus) 1 tab PO BID PRN PRN Reason: Constipation Senna/Docusate Sodium (Senna Plus) 1 tab PO BID [facility] Last Admin: 06/18/16 09:32 Dose: 1 tab Triamcinolone Acetonide (Triamcinolone Acetonide 0.1% Crm) 15 gm TOP BID PRN PRN Reason: Rash Discontinued Medications Fentanyl (Duragesic) 12 mcg TRDERM Q72H [facility] Last Admin: 06/17/16 08:44 Dose: 12 mcg Ferrous Sulfate (Ferrous Sulfate) 325 mg PO DAILY [facility] Last Admin: 06/17/16 11:19 Dose: 325 mg Gadobenate Dimeglumine (Multihance) 14 ml IVPUSH ONETIME ONE Stop: 06/17/16 09:33 Last Admin: 06/17/16 10:58 Dose: 14 ml Sodium Chloride (Normal Saline) 500 mls @ 999 mls/hr IV .BOLUS ONE Stop: 06/15/16 20:19 Last Admin: 06/15/16 19:52 Dose: 999 mls/hr Ceftriaxone Sodium 1 gm/ (Sodium Chloride) 100 mls @ 200 mls/hr IV ONETIME ONE Stop: 06/15/16 22:03 Last Admin: 06/15/16 21:43 Dose: 200 mls/hr Levofloxacin/Dextrose 500 mg/ (Premix) 100 mls @ 100 mls/hr IV ONETIME ONE Stop: 06/15/16 22:36 Last Admin: 06/15/16 22:24 Dose: 100 mls/hr Ceftriaxone Sodium 1 gm/ (Sodium Chloride) 100 mls @ 200 mls/hr IV Q24H [facility] Last Admin: 06/16/16 21:14 Dose: Not Given Sodium Chloride (Normal Saline) 1,000 mls @ 150 mls/hr IV ASDIRECTED [facility] Last Admin: 06/16/16 00:13 Dose: 150 mls/hr Ceftriaxone Sodium 1 gm/ (Sodium Chloride) 100 mls @ 200 mls/hr IV Q24H [facility] Magnesium Sulfate 2 gm/ Premix 50 mls @ 25 mls/hr IV ONETIME ONE Stop: 06/16/16 13:59 Last Admin: 06/16/16 11:02 Dose: 25 mls/hr Magnesium Sulfate 2 gm/ Premix 50 mls @ 25 mls/hr IV ONETIME ONE Stop: 06/17/16 10:29 Last Admin: 06/17/16 08:41 Dose: 25 mls/hr Insulin Aspart (Novolog) 0 unit SUBCUT ASDIRECTED [facility] PRN Reason: Protocol Insulin Detemir (Levemir) 0 unit SUBCUT BEDTIME [facility] Last Admin: 06/17/16 22:07 Dose: 25 units Levothyroxine Sodium (Levothyroxine) 175 mcg PO ACBRK [facility] Last Admin: 06/17/16 06:25 Dose: Not Given Magnesium Oxide (Magnesium Oxide) 400 mg PO BID [facility] Last Admin: 06/16/16 21:44 Dose: 400 mg Magnesium Sulfate (Pharmacy To Dose - Magnesium Replacement) 1 dose .XX ASDIRECTED [facility] Ondansetron HCl (Zofran) 4 mg IVPUSH ONETIME ONE Stop: 06/15/16 23:28 Last Admin: 06/15/16 23:33 Dose: 4 mg Potassium Chloride (Pharmacy To Dose - Potassium Replacement) 1 dose .XX ASDIRECTED [facility] Sodium Chloride (Saline Flush) 10 ml FLUSH ASDIRECTED PRN PRN Reason: Keep Vein Open Last Admin: 06/15/16 19:52 Dose: 10 ml Sodium Chloride (Saline Flush) 10 ml FLUSH ONETIME PRN PRN Reason: Keep Vein Open Stop: 06/17/16 16:00 Last Admin: 06/17/16 10:59 Dose: 10 ml - Exam Quality Assessment: DVT prophylaxis General: alert, oriented, cooperative, no acute distress HEENT: Pupils equal, Pupils reactive, EOMI, Mucous membr. moist/pink Neck: supple Lungs: Clear to auscultation, Normal respiratory effort Cardiovascular: Regular Rate, Regular Rhythm Abdomen: bowel sounds present, soft, no tenderness, no distension (Female) Exam: Deferred Extremities: no edema, no calf tenderness Peripheral Pulses: 1+: dorsalis pedis (L), dorsalis pedis (R) Skin: warm, dry Neurological: no new focal deficit Psy/Mental Status: alert, normal affect, normal mood - Problem List Review Problem List Initiated/Reviewed/Updated: Yes - My Orders Last 24 Hours: My Active Orders 06/18/16 06:53 Blood Culture x2 Reflex Set [OM.PC] Stat 06/18/16 07:23 CULTURE BLOOD [BC] Stat 06/18/16 07:30 fentaNYL [Duragesic] 25 mcg TRDERM Q72H 06/18/16 07:39 CULTURE BLOOD [BC] Stat 06/18/16 17:00 Ferrous Sulfate 325 mg PO BIDMEALS - Plan Plan:: Assessment/Plan: Acute Abdominal Pain - 2/2 below - MRCP: pancreatic mass, 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 She wishes to think on this for the time being. 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 Mcfarlane Hyperglycemia with DM2 - BS 208 - ISS and Accu-check BID - ADA diet Depression -Consult Dr Ackerman Chronic: CAD S/p CABG HTN HLD GERD Hx/o Recurrent UTI Back Pain DM2 Hypothyroidism Abnormal Gait Muscle Wasting/Atrophy Plan: Will need referral to [place] for findings as mentioned above should she wish to pursue further eval/tx. Admit to the floor Routine AM Labs Resume Home Meds PT/OT eval SC/CM for d/c planning Additional orders as above Code status: DNR/DNI <Clair Nathan - Last Filed: 06/18/16 18:29> - Patient Data Vitals - most recent: Last Vital Signs Temp 36.9 C 06/18/16 15:46 Pulse 68 06/18/16 15:46 Resp 14 06/18/16 15:46 BP 126/65 05/05/17 15:46 Pulse Ox 92 L 06/18/16 15:46 I&O - last 24 hours: Intake & Output 06/18/16 06/18/16 06/18/16 06:59 14:59 22:59 Intake Total 8625 988 2693 Balance 1974 777 7649 Lab Results last 24 hrs: Laboratory Results - last 24 hr 06/17/16 06/18/16 06/18/16 Range/Units 22:05 06:09 06:09 WBC 4.68 (3.98-10.04) K/mm3 RBC 3.93 L (3.98-5.22) M/mm3 Hgb 10.6 L (11.2-15.7) gm/L Hct 33.7 L (34.1-44.9) % MCV 85.8 (79.4-94.8) fl MCH 27.0 (25.6-32.2) pg MCHC 31.5 L (32.2-35.5) g/dl RDW Std Deviation 53.1 H (36.4-46.3) fL Plt Count 221 (182-369) K/mm3 MPV 10.4 (9.4-12.3) fl Neut % (Auto) 74.4 H (34.0-71.1) % Lymph % (Auto) 13.9 L (19.3-51.7) % Gates % (Auto) 8.3 (4.7-12.5) % Eos % (Auto) 3.0 (0.7-5.8) Baso % (Auto) 0.2 (0.1-1.2) % Neut # (Auto) 3.48 (1.56-6.13) K/mm3 Lymph # (Auto) 0.65 L (1.18-3.74) K/mm3 Gates # (Auto) 0.39 H (0.24-0.36) K/mm3 Eos # (Auto) 0.14 (0.04-0.36) K/mm3 Baso # (Auto) 0.01 (0.01-0.08) K/mm3 POC Glucose 166 H (83-110) mg/dL Magnesium 2.0 (1.8-2.4) mg/dl C-Reactive Protein 7.1 H* (<1.0) mg/dL 06/18/16 06/18/16 06/18/16 Range/Units 07:02 07:56 10:59 WBC (3.98-10.04) K/mm3 RBC (3.98-5.22) M/mm3 Hgb (11.2-15.7) gm/L Hct (34.1-44.9) % MCV (79.4-94.8) fl MCH (25.6-32.2) pg MCHC (32.2-35.5) g/dl RDW Std Deviation (36.4-46.3) fL Plt Count (182-369) K/mm3 MPV (9.4-12.3) fl Neut % (Auto) (34.0-71.1) % Lymph % (Auto) (19.3-51.7) % Gates % (Auto) (4.7-12.5) % Eos % (Auto) (0.7-5.8) Baso % (Auto) (0.1-1.2) % Neut # (Auto) (1.56-6.13) K/mm3 Lymph # (Auto) (1.18-3.74) K/mm3 Gates # (Auto) (0.24-0.36) K/mm3 Eos # (Auto) (0.04-0.36) K/mm3 Baso # (Auto) (0.01-0.08) K/mm3 POC Glucose 52 L 62 L 107 (83-110) mg/dL Magnesium (1.8-2.4) mg/dl C-Reactive Protein (<1.0) mg/dL 06/18/16 Range/Units 17:00 WBC (3.98-10.04) K/mm3 RBC (3.98-5.22) M/mm3 Hgb (11.2-15.7) gm/L Hct (34.1-44.9) % MCV (79.4-94.8) fl MCH (25.6-32.2) pg MCHC (32.2-35.5) g/dl RDW Std Deviation (36.4-46.3) fL Plt Count (182-369) K/mm3 MPV (9.4-12.3) fl Neut % (Auto) (34.0-71.1) % Lymph % (Auto) (19.3-51.7) % Gates % (Auto) (4.7-12.5) % Eos % (Auto) (0.7-5.8) Baso % (Auto) (0.1-1.2) % Neut # (Auto) (1.56-6.13) K/mm3 Lymph # (Auto) (1.18-3.74) K/mm3 Gates # (Auto) (0.24-0.36) K/mm3 Eos # (Auto) (0.04-0.36) K/mm3 Baso # (Auto) (0.01-0.08) K/mm3 POC Glucose 153 H (83-110) mg/dL Magnesium (1.8-2.4) mg/dl C-Reactive Protein (<1.0) mg/dL Med Orders - Current: Current Medications Acetaminophen (Tylenol) 325 mg PO Q6H PRN PRN Reason: Pain Hydrocodone Bitart/Acetaminophen ([place] 325-5 Mg) 1 tab PO Q4H PRN PRN Reason: Pain (moderate 4-6) Last Admin: 06/18/16 16:55 Dose: 1 tab Al Hydroxide/Mg Hydroxide (Mag-Al Plus) 30 ml PO QID PRN PRN Reason: Heartburn Albuterol (Proventil Neb Soln) 2.5 mg NEB Q2H PRN PRN Reason: Shortness Of Breath/wheezing Artificial Tears (Isopto Tears 0.5% Ophth Soln) 0 ml EYEBOTH BID [facility] Last Admin: 06/18/16 09:29 Dose: 1 drop Aspirin (Halfprin) 81 mg PO DAILY [facility] Last Admin: 06/18/16 09:32 Dose: 81 mg Bisacodyl (Dulcolax) 10 mg RECTAL DAILY PRN PRN Reason: Constipation Bisacodyl (Dulcolax) 5 mg PO DAILY PRN PRN Reason: Constipation Cholecalciferol (Vitamin D3) 1,000 units PO DAILY [facility] Last Admin: 06/18/16 09:33 Dose: 1,000 units Cyanocobalamin (Vitamin B12) 1,000 mcg PO DAILY [facility] Last Admin: 06/18/16 09:32 Dose: 1,000 mcg Dextrose/Water (Dextrose 50% In Water) 50 ml IVPUSH ASDIRECTED PRN PRN Reason: Hypoglycemia Last Admin: 06/17/16 06:49 Dose: 50 ml Docusate Sodium (Colace) 100 mg PO BID [facility] Last Admin: 06/18/16 09:33 Dose: 100 mg Enoxaparin Sodium (Lovenox) 40 mg SUBCUT DAILY [facility] Last Admin: 06/18/16 09:35 Dose: 40 mg Fentanyl (Duragesic) 25 mcg TRDERM Q72H [facility] Last Admin: 06/18/16 08:22 Dose: 25 mcg Ferrous Sulfate (Ferrous Sulfate) 325 mg PO BIDMEALS [facility] Last Admin: 06/18/16 16:49 Dose: 325 mg Hydralazine HCl (Apresoline) 10 mg IVPUSH Q4H PRN PRN Reason: Hypertension Hydromorphone HCl (Dilaudid) 0.25 mg IVPUSH Q2H PRN PRN Reason: Pain (severe 7-10) Last Admin: 06/18/16 05:39 Dose: 0.25 mg Promethazine HCl 12.5 mg/ (Sodium Chloride) 50.5 mls @ 100 mls/hr IV Q6H PRN PRN Reason: Nausea/Vomiting Sodium Chloride (Normal Saline) 1,000 mls @ 50 mls/hr IV ASDIRECTED [facility] Last Admin: 06/18/16 01:01 Dose: 50 mls/hr Meropenem 500 mg/ Sodium (Chloride) 100 mls @ 200 mls/hr IV Q8H [facility] Last Admin: 06/18/16 16:49 Dose: 200 mls/hr Insulin Aspart (Novolog) 0 unit SUBCUT QIDACANDBED [facility] PRN Reason: Protocol Last Admin: 06/18/16 17:57 Dose: 1 unit Insulin Detemir (Levemir) 12.5 unit SUBCUT BID [facility] Isosorbide Mononitrate (Imdur) 15 mg PO DAILY [facility] Last Admin: 06/18/16 09:34 Dose: 15 mg Lactulose (Cephulac) 10 gm PO DAILY PRN PRN Reason: Constipation Levothyroxine Sodium (Levothroid) 137 mcg PO ACBREAKFAST [facility] Last Admin: 06/18/16 05:41 Dose: 137 mcg Losartan Potassium (Cozaar) 25 mg PO DAILY [facility] Last Admin: 06/18/16 09:34 Dose: 25 mg Magnesium Hydroxide (Milk Of Magnesia) 30 ml PO DAILY PRN PRN Reason: Constipation Magnesium Oxide (Magnesium Oxide) 400 mg PO DAILY [facility] Last Admin: 06/18/16 09:31 Dose: 400 mg Metoprolol Succinate (Toprol Xl) 25 mg PO DAILY [facility] Last Admin: 06/18/16 09:33 Dose: 25 mg Metoprolol Tartrate (Lopressor) 5 mg IVPUSH Q4H PRN PRN Reason: Tachycardia Miscellaneous Information (Remove Patch) 0 ea TRDERM Q72H [facility] Multivitamins (Thera) 1 each PO DAILY [facility] Last Admin: 06/18/16 09:32 Dose: 1 each Ondansetron HCl (Zofran) 4 mg IV Q6H PRN PRN Reason: Nausea/Vomiting Last Admin: 06/16/16 08:33 Dose: 4 mg Pantoprazole Sodium (Protonix) 40 mg PO DAILY@0700 [facility] Last Admin: 06/18/16 07:56 Dose: Not Given Cranberry Extract [ (Cranberry] 400 Mg) 0 each PO BID [facility] Last Admin: 06/18/16 09:30 Dose: Not Given Hydrocortisone 30 Gm 0 each TOP BID [facility] Last Admin: 06/18/16 09:30 Dose: Not Given Liraglutide 1.2 Mg 0 each SUBCUT BEDTIME [facility] Last Admin: 06/17/16 22:09 Dose: Not Given Phenol [Phenol] 2 (Sprays) 0 each BUCCAL Q4H PRN PRN Reason: Sore Throat Polyethylene Glycol (Miralax) 17 gm PO DAILY [facility] Last Admin: 06/18/16 09:27 Dose: 17 gm Senna/Docusate Sodium (Senna Plus) 1 tab PO BID PRN PRN Reason: Constipation Senna/Docusate Sodium (Senna Plus) 1 tab PO BID [facility] Last Admin: 06/18/16 09:32 Dose: 1 tab Triamcinolone Acetonide (Triamcinolone Acetonide 0.1% Crm) 15 gm TOP BID PRN PRN Reason: Rash Discontinued Medications Fentanyl (Duragesic) 12 mcg TRDERM Q72H [facility] Last Admin: 06/17/16 08:44 Dose: 12 mcg Ferrous Sulfate (Ferrous Sulfate) 325 mg PO DAILY [facility] Last Admin: 06/17/16 11:19 Dose: 325 mg Gadobenate Dimeglumine (Multihance) 14 ml IVPUSH ONETIME ONE Stop: 06/17/16 09:33 Last Admin: 06/17/16 10:58 Dose: 14 ml Sodium Chloride (Normal Saline) 500 mls @ 999 mls/hr IV .BOLUS ONE Stop: 06/15/16 20:19 Last Admin: 06/15/16 19:52 Dose: 999 mls/hr Ceftriaxone Sodium 1 gm/ (Sodium Chloride) 100 mls @ 200 mls/hr IV ONETIME ONE Stop: 06/15/16 22:03 Last Admin: 06/15/16 21:43 Dose: 200 mls/hr Levofloxacin/Dextrose 500 mg/ (Premix) 100 mls @ 100 mls/hr IV ONETIME ONE Stop: 06/15/16 22:36 Last Admin: 06/15/16 22:24 Dose: 100 mls/hr Ceftriaxone Sodium 1 gm/ (Sodium Chloride) 100 mls @ 200 mls/hr IV Q24H [facility] Last Admin: 06/16/16 21:14 Dose: Not Given Sodium Chloride (Normal Saline) 1,000 mls @ 150 mls/hr IV ASDIRECTED [facility] Last Admin: 06/16/16 00:13 Dose: 150 mls/hr Ceftriaxone Sodium 1 gm/ (Sodium Chloride) 100 mls @ 200 mls/hr IV Q24H [facility] Magnesium Sulfate 2 gm/ Premix 50 mls @ 25 mls/hr IV ONETIME ONE Stop: 06/16/16 13:59 Last Admin: 06/16/16 11:02 Dose: 25 mls/hr Magnesium Sulfate 2 gm/ Premix 50 mls @ 25 mls/hr IV ONETIME ONE Stop: 06/17/16 10:29 Last Admin: 06/17/16 08:41 Dose: 25 mls/hr Insulin Aspart (Novolog) 0 unit SUBCUT ASDIRECTED [facility] PRN Reason: Protocol Insulin Detemir (Levemir) 0 unit SUBCUT BEDTIME [facility] Last Admin: 06/17/16 22:07 Dose: 25 units Levothyroxine Sodium (Levothyroxine) 175 mcg PO ACBRK [facility] Last Admin: 06/17/16 06:25 Dose: Not Given Magnesium Oxide (Magnesium Oxide) 400 mg PO BID [facility] Last Admin: 06/16/16 21:44 Dose: 400 mg Magnesium Sulfate (Pharmacy To Dose - Magnesium Replacement) 1 dose .XX ASDIRECTED [facility] Ondansetron HCl (Zofran) 4 mg IVPUSH ONETIME ONE Stop: 06/15/16 23:28 Last Admin: 06/15/16 23:33 Dose: 4 mg Potassium Chloride (Pharmacy To Dose - Potassium Replacement) 1 dose .XX ASDIRECTED [place] Sodium Chloride (Saline Flush) 10 ml FLUSH ASDIRECTED PRN PRN Reason: Keep Vein Open Last Admin: 06/15/16 19:52 Dose: 10 ml Sodium Chloride (Saline Flush) 10 ml FLUSH ONETIME PRN PRN Reason: Keep Vein Open Stop: 06/17/16 16:00 Last Admin: 06/17/16 10:59 Dose: 10 ml - Plan Plan:: Unfortunate news regarding pancreatic mass, decision for eval/tx will be done after DC.
[2016-06-18] MEDS: Ferrous Sulfate 325 MG Tab PO SCH (16:49)
[2016-06-18] MEDS: Insulin Detemir 100 Units/ML 3 ML Pen SUBCUT SCH (20:07)
[2016-06-18] MEDS: Liraglutide 1.2 MG SUBCUT SCH (20:53)
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
[2016-06-19] MEDS: Meropenem 500 MG in Sodium Chloride 0.9% 100 ML IV SCH ×3 (00:36→16:01)
[2016-06-19] MEDS: Pantoprazole 40 MG Tab.CR PO SCH ×2 (04:52→06:26)
[2016-06-19] MEDS: Acetaminophen/HYDROcodone 325-5 MG Tab PO PRN ×3 (04:52→21:32)
[2016-06-19] MEDS: Ferrous Sulfate 325 MG Tab PO SCH ×3 (04:53→16:01)
[2016-06-19] MEDS: Insulin Aspart 100 Units/ML 3 ML Pen SUBCUT SCH ×4 (07:25→21:34)
[2016-06-19] MEDS: Aspirin 81 MG Tab.EC PO SCH (09:42)
[2016-06-19] MEDS: Cyanocobalamin (Vitamin B12) 1,000 MCG Tab PO SCH (09:43)
[2016-06-19] MEDS: Cholecalciferol (Vitamin D3) 1,000 Unit Tab PO SCH (09:43)
[2016-06-19] MEDS: Multivitamins,Therapeutic Tab PO SCH (09:43)
[2016-06-19] MEDS: Losartan 25 MG Tab PO SCH (09:46)
[2016-06-19] MEDS: Magnesium Oxide 400 MG Tab PO SCH (09:46)
[2016-06-19] MEDS: Metoprolol Succinate 25 MG Tab.ER PO SCH (09:47)
[2016-06-19] MEDS: Isosorbide Mononitrate 30 MG Tab.ER PO SCH (09:47)
[2016-06-19] MEDS: HYDROCORTISONE 30 GM TOP SCH ×2 (09:48→21:35)
[2016-06-19] MEDS: Polyethylene Glycol 3350 Powder 17 GM Packet PO SCH (09:48)
[2016-06-19] MEDS: CRANBERRY EXTRACT 400 MG PO SCH ×2 (09:48→21:35)
[2016-06-19] MEDS: Docusate Sodium 100 MG Cap PO SCH ×2 (09:48→21:32)
[2016-06-19] MEDS: Enoxaparin 40 MG/0.4 ML Syringe SUBCUT SCH (09:49)
[2016-06-19] MEDS: Hypromellose 0.5% Ophth Soln 15 ML Bottle EYEBOTH SCH ×2 (09:49→21:32)
[2016-06-19] MEDS: Insulin Detemir 100 Units/ML 3 ML Pen SUBCUT SCH (09:49)
[2016-06-19] MEDS ORDERED: Magnesium Sulfate/Water 2 GM in Premix Bag 1 BAG IV ONE (15:24)
--- NOTE | 2016-06-19 15:34 | PCM.PN ---
- General Info Date of Service: 06/19/16 Functional Status: Reports: pain controlled, tolerating diet, ambulating, urinating - Review of Systems General: Reports: No Symptoms HEENT: Reports: no symptoms Pulmonary: Reports: no symptoms Cardiovascular: Reports: No Symptoms Gastrointestinal: Reports: No symptoms Genitourinary: Reports: no symptoms Musculoskeletal: Reports: no symptoms Skin: Reports: no symptoms Neurological: Reports: No Symptoms Psychiatric: Reports: no symptoms - Patient Data Vitals - most recent: Last Vital Signs Temp 37.3 C 06/19/16 14:58 Pulse 71 06/19/16 14:58 Resp 20 06/19/16 14:58 BP 123/71 06/19/16 14:58 Pulse Ox 91 L 06/19/16 14:58 Weight - most recent: 70.806 kg I&O - last 24 hours: Intake & Output 06/19/16 06/19/16 06/19/16 06:59 14:59 22:59 Intake Total 988 Balance 988 Lab Results last 24 hrs: Laboratory Results - last 24 hr 06/18/16 06/18/16 06/19/16 Range/Units 17:00 20:05 04:59 WBC 4.83 (3.98-10.04) K/mm3 RBC 4.08 (3.98-5.22) M/mm3 Hgb 11.1 L (11.2-15.7) gm/L Hct 34.9 (34.1-44.9) % MCV 85.5 (79.4-94.8) fl MCH 27.2 (25.6-32.2) pg MCHC 31.8 L (32.2-35.5) g/dl RDW Std Deviation 53.4 H (36.4-46.3) fL Plt Count 222 (182-369) K/mm3 MPV 10.5 (9.4-12.3) fl Neut % (Auto) 62.1 (34.0-71.1) % Lymph % (Auto) 22.8 (19.3-51.7) % Gregory % (Auto) 10.6 (4.7-12.5) % Eos % (Auto) 3.9 (0.7-5.8) Baso % (Auto) 0.4 (0.1-1.2) % Neut # (Auto) 3.00 (1.56-6.13) K/mm3 Lymph # (Auto) 1.10 L (1.18-3.74) K/mm3 Gregory # (Auto) 0.51 H (0.24-0.36) K/mm3 Eos # (Auto) 0.19 (0.04-0.36) K/mm3 Baso # (Auto) 0.02 (0.01-0.08) K/mm3 POC Glucose 153 H 172 H (83-110) mg/dL Magnesium (1.8-2.4) mg/dl C-Reactive Protein (<1.0) mg/dL 06/19/16 06/19/16 06/19/16 Range/Units 04:59 06:54 10:57 WBC (3.98-10.04) K/mm3 RBC (3.98-5.22) M/mm3 Hgb (11.2-15.7) gm/L Hct (34.1-44.9) % MCV (79.4-94.8) fl MCH (25.6-32.2) pg MCHC (32.2-35.5) g/dl RDW Std Deviation (36.4-46.3) fL Plt Count (182-369) K/mm3 MPV (9.4-12.3) fl Neut % (Auto) (34.0-71.1) % Lymph % (Auto) (19.3-51.7) % Gregory % (Auto) (4.7-12.5) % Eos % (Auto) (0.7-5.8) Baso % (Auto) (0.1-1.2) % Neut # (Auto) (1.56-6.13) K/mm3 Lymph # (Auto) (1.18-3.74) K/mm3 Gregory # (Auto) (0.24-0.36) K/mm3 Eos # (Auto) (0.04-0.36) K/mm3 Baso # (Auto) (0.01-0.08) K/mm3 POC Glucose 72 L 177 H (83-110) mg/dL Magnesium 1.8 (1.8-2.4) mg/dl C-Reactive Protein 4.3 H* (<1.0) mg/dL Thai Results last 24 hrs: Microbiology 06/18/16 07:39 Aerobic Blood Culture - Preliminary Blood - Venous - Lab Draw NO GROWTH AFTER 1 DAY Anaerobic Blood Culture - Preliminary NO GROWTH AFTER 1 DAY 06/18/16 07:23 Aerobic Blood Culture - Preliminary Blood - Venous NO GROWTH AFTER 1 DAY Anaerobic Blood Culture - Preliminary NO GROWTH AFTER 1 DAY Med Orders - Current: Current Medications Acetaminophen (Tylenol) 325 mg PO Q6H PRN PRN Reason: Pain Hydrocodone Bitart/Acetaminophen ([place] 325-5 Mg) 1 tab PO Q4H PRN PRN Reason: Pain (moderate 4-6) Last Admin: 06/19/16 09:50 Dose: 1 tab Al Hydroxide/Mg Hydroxide (Mag-Al Plus) 30 ml PO QID PRN PRN Reason: Heartburn Albuterol (Proventil Neb Soln) 2.5 mg NEB Q2H PRN PRN Reason: Shortness Of Breath/wheezing Artificial Tears (Isopto Tears 0.5% Ophth Soln) 0 ml EYEBOTH BID [facility] Last Admin: 06/19/16 09:49 Dose: 1 drop Aspirin (Halfprin) 81 mg PO DAILY [facility] Last Admin: 06/19/16 09:42 Dose: 81 mg Bisacodyl (Dulcolax) 10 mg RECTAL DAILY PRN PRN Reason: Constipation Bisacodyl (Dulcolax) 5 mg PO DAILY PRN PRN Reason: Constipation Cholecalciferol (Vitamin D3) 1,000 units PO DAILY [facility] Last Admin: 06/19/16 09:43 Dose: 1,000 units Cyanocobalamin (Vitamin B12) 1,000 mcg PO DAILY [facility] Last Admin: 06/19/16 09:43 Dose: 1,000 mcg Dextrose/Water (Dextrose 50% In Water) 50 ml IVPUSH ASDIRECTED PRN PRN Reason: Hypoglycemia Last Admin: 06/17/16 06:49 Dose: 50 ml Docusate Sodium (Colace) 100 mg PO BID [facility] Last Admin: 06/19/16 09:48 Dose: Not Given Enoxaparin Sodium (Lovenox) 40 mg SUBCUT DAILY [facility] Last Admin: 06/19/16 09:49 Dose: 40 mg Fentanyl (Duragesic) 25 mcg TRDERM Q72H [facility] Last Admin: 06/18/16 08:22 Dose: 25 mcg Ferrous Sulfate (Ferrous Sulfate) 325 mg PO BIDMEALS [facility] Last Admin: 06/19/16 06:26 Dose: Not Given Hydralazine HCl (Apresoline) 10 mg IVPUSH Q4H PRN PRN Reason: Hypertension Hydromorphone HCl (Dilaudid) 0.25 mg IVPUSH Q2H PRN PRN Reason: Pain (severe 7-10) Last Admin: 06/18/16 05:39 Dose: 0.25 mg Promethazine HCl 12.5 mg/ (Sodium Chloride) 50.5 mls @ 100 mls/hr IV Q6H PRN PRN Reason: Nausea/Vomiting Sodium Chloride (Normal Saline) 1,000 mls @ 50 mls/hr IV ASDIRECTED [facility] Last Admin: 06/18/16 20:06 Dose: 50 mls/hr Meropenem 500 mg/ Sodium (Chloride) 100 mls @ 200 mls/hr IV Q8H [facility] Last Admin: 06/19/16 09:44 Dose: 200 mls/hr Magnesium Sulfate 2 gm/ Premix 50 mls @ 25 mls/hr IV ONETIME ONE Stop: 06/19/16 17:23 Insulin Aspart (Novolog) 0 unit SUBCUT QIDACANDBED [facility] PRN Reason: Protocol Last Admin: 06/19/16 11:45 Dose: 1 unit Isosorbide Mononitrate (Imdur) 15 mg PO DAILY [facility] Last Admin: 06/19/16 09:47 Dose: 15 mg Lactulose (Cephulac) 10 gm PO DAILY PRN PRN Reason: Constipation Levothyroxine Sodium (Levothroid) 137 mcg PO ACBREAKFAST [facility] Last Admin: 06/19/16 06:25 Dose: Not Given Losartan Potassium (Cozaar) 25 mg PO DAILY [facility] Last Admin: 06/19/16 09:46 Dose: 25 mg Magnesium Hydroxide (Milk Of Magnesia) 30 ml PO DAILY PRN PRN Reason: Constipation Magnesium Oxide (Magnesium Oxide) 400 mg PO DAILY [facility] Last Admin: 06/19/16 09:46 Dose: 400 mg Metoprolol Succinate (Toprol Xl) 25 mg PO DAILY [facility] Last Admin: 06/19/16 09:47 Dose: 25 mg Metoprolol Tartrate (Lopressor) 5 mg IVPUSH Q4H PRN PRN Reason: Tachycardia Miscellaneous Information (Remove Patch) 0 ea TRDERM Q72H [facility] Multivitamins (Thera) 1 each PO DAILY [facility] Last Admin: 06/19/16 09:43 Dose: 1 each Ondansetron HCl (Zofran) 4 mg IV Q6H PRN PRN Reason: Nausea/Vomiting Last Admin: 06/16/16 08:33 Dose: 4 mg Pantoprazole Sodium (Protonix) 40 mg PO DAILY@0700 [facility] Last Admin: 06/19/16 06:26 Dose: Not Given Cranberry Extract [ (Cranberry] 400 Mg) 0 each PO BID [facility] Last Admin: 06/19/16 09:48 Dose: Not Given Hydrocortisone 30 Gm 0 each TOP BID [facility] Last Admin: 06/19/16 09:48 Dose: Not Given Liraglutide 1.2 Mg 0 each SUBCUT BEDTIME [facility] Last Admin: 06/18/16 20:53 Dose: Not Given Phenol [Phenol] 2 (Sprays) 0 each BUCCAL Q4H PRN PRN Reason: Sore Throat Polyethylene Glycol (Miralax) 17 gm PO DAILY [facility] Last Admin: 06/19/16 09:48 Dose: Not Given Senna/Docusate Sodium (Senna Plus) 1 tab PO BID PRN PRN Reason: Constipation Senna/Docusate Sodium (Senna Plus) 1 tab PO BID [facility] Last Admin: 06/19/16 09:48 Dose: Not Given Triamcinolone Acetonide (Triamcinolone Acetonide 0.1% Crm) 15 gm TOP BID PRN PRN Reason: Rash Discontinued Medications Fentanyl (Duragesic) 12 mcg TRDERM Q72H [facility] Last Admin: 06/17/16 08:44 Dose: 12 mcg Ferrous Sulfate (Ferrous Sulfate) 325 mg PO DAILY [facility] Last Admin: 06/17/16 11:19 Dose: 325 mg Gadobenate Dimeglumine (Multihance) 14 ml IVPUSH ONETIME ONE Stop: 06/17/16 09:33 Last Admin: 06/17/16 10:58 Dose: 14 ml Sodium Chloride (Normal Saline) 500 mls @ 999 mls/hr IV .BOLUS ONE Stop: 06/15/16 20:19 Last Admin: 06/15/16 19:52 Dose: 999 mls/hr Ceftriaxone Sodium 1 gm/ (Sodium Chloride) 100 mls @ 200 mls/hr IV ONETIME ONE Stop: 06/15/16 22:03 Last Admin: 06/15/16 21:43 Dose: 200 mls/hr Levofloxacin/Dextrose 500 mg/ (Premix) 100 mls @ 100 mls/hr IV ONETIME ONE Stop: 06/15/16 22:36 Last Admin: 06/15/16 22:24 Dose: 100 mls/hr Ceftriaxone Sodium 1 gm/ (Sodium Chloride) 100 mls @ 200 mls/hr IV Q24H [facility] Last Admin: 06/16/16 21:14 Dose: Not Given Sodium Chloride (Normal Saline) 1,000 mls @ 150 mls/hr IV ASDIRECTED [facility] Last Admin: 06/16/16 00:13 Dose: 150 mls/hr Ceftriaxone Sodium 1 gm/ (Sodium Chloride) 100 mls @ 200 mls/hr IV Q24H [facility] Magnesium Sulfate 2 gm/ Premix 50 mls @ 25 mls/hr IV ONETIME ONE Stop: 06/16/16 13:59 Last Admin: 06/16/16 11:02 Dose: 25 mls/hr Magnesium Sulfate 2 gm/ Premix 50 mls @ 25 mls/hr IV ONETIME ONE Stop: 06/17/16 10:29 Last Admin: 06/17/16 08:41 Dose: 25 mls/hr Insulin Aspart (Novolog) [facility] PRN Reason: Protocol Insulin Detemir (Levemir) 0 unit SUBCUT BEDTIME [facility] Last Admin: 06/17/16 22:07 Dose: 25 units Insulin Detemir (Levemir) 12.5 unit SUBCUT BID [facility] Last Admin: 06/19/16 09:49 Dose: Not Given Levothyroxine Sodium (Levothyroxine) 175 mcg PO ACBRK [facility] Last Admin: 06/17/16 06:25 Dose: Not Given Magnesium Oxide (Magnesium Oxide) 400 mg PO BID [facility] Last Admin: 06/16/16 21:44 Dose: 400 mg Magnesium Sulfate (Pharmacy To Dose - Magnesium Replacement) 1 dose .XX ASDIRECTED [facility] Ondansetron HCl (Zofran) 4 mg IVPUSH ONETIME ONE Stop: 06/15/16 23:28 Last Admin: 06/15/16 23:33 Dose: 4 mg Potassium Chloride (Pharmacy To Dose - Potassium Replacement) 1 dose .XX ASDIRECTED [place] Sodium Chloride (Saline Flush) 10 ml FLUSH ASDIRECTED PRN PRN Reason: Keep Vein Open Last Admin: 06/15/16 19:52 Dose: 10 ml Sodium Chloride (Saline Flush) 10 ml FLUSH ONETIME PRN PRN Reason: Keep Vein Open Stop: 06/17/16 16:00 Last Admin: 06/17/16 10:59 Dose: 10 ml - Exam Quality Assessment: DVT prophylaxis General: alert, oriented, cooperative, no acute distress HEENT: Pupils equal, Pupils reactive, EOMI Neck: supple, trachea midline Lungs: Normal respiratory effort Cardiovascular: Regular Rate, Regular Rhythm Abdomen: bowel sounds present, soft, no tenderness, no distension (Female) Exam: Deferred Back Exam: normal inspection Extremities: normal pulses Skin: warm Neurological: no new focal deficit Psy/Mental Status: alert, normal affect, normal mood - Problem List Review Problem List Initiated/Reviewed/Updated: Yes - My Orders Last 24 Hours: My Active Orders 06/19/16 15:24 Magnesium Sulfate/Water [Magnesium Sulfate 2 GM in Water 50 ML] 2 gm Premix Bag 1 bag IV ONETIME - Plan Plan:: Impression: Abdominal pain, MRCP with pancreatic mass Decision for evaluation and treatment, TBD UTI Continue Rocephin Hepato-biliary Disease Assessement by general surgery, will require follow as outpatient Hypoglycemia with adjustment of home insulin Generally occurring in the AM Depression, seen by psychiatry without full assessment Patient did not fully disclose current status with of spouse and its impact Plan: Continue treatment Daily labs DC early next week SM/CM DC planning in progress LOS>96 hours, treattment and DC plan ongoing. Unfortunate news regarding pancreatic mass, decision for eval/tx will be done after DC. LOS>96 hours re:treatment
[2016-06-19] MEDS: Sodium Chloride 0.9% 1,000 ML IV SCH (16:01)
[2016-06-19] MEDS: HYDROmorphone 0.5 MG/0.5 ML Syringe IVPUSH PRN (21:31)
[2016-06-19] MEDS: Liraglutide 1.2 MG SUBCUT SCH (21:35)
[2016-06-20] MEDS: Meropenem 500 MG in Sodium Chloride 0.9% 100 ML IV SCH ×2 (00:35→08:24)
[2016-06-20] MEDS: Acetaminophen/HYDROcodone 325-5 MG Tab PO PRN ×4 (01:59→20:57)
[2016-06-20] MEDS: Ferrous Sulfate 325 MG Tab PO SCH ×2 (07:03→17:01)
[2016-06-20] MEDS: Pantoprazole 40 MG Tab.CR PO SCH (07:03)
[2016-06-20] MEDS: Insulin Aspart 100 Units/ML 3 ML Pen SUBCUT SCH ×5 (07:16→21:39)
[2016-06-20] MEDS: Cholecalciferol (Vitamin D3) 1,000 Unit Tab PO SCH (08:29)
[2016-06-20] MEDS: Multivitamins,Therapeutic Tab PO SCH (08:29)
[2016-06-20] MEDS: Aspirin 81 MG Tab.EC PO SCH (08:29)
[2016-06-20] MEDS: Cyanocobalamin (Vitamin B12) 1,000 MCG Tab PO SCH (08:29)
[2016-06-20] MEDS: Losartan 25 MG Tab PO SCH (08:29)
[2016-06-20] MEDS: Magnesium Oxide 400 MG Tab PO SCH (08:30)
[2016-06-20] MEDS: Metoprolol Succinate 25 MG Tab.ER PO SCH (08:30)
[2016-06-20] MEDS: Isosorbide Mononitrate 30 MG Tab.ER PO SCH (08:31)
[2016-06-20] MEDS: Hypromellose 0.5% Ophth Soln 15 ML Bottle EYEBOTH SCH ×2 (08:32→20:57)
[2016-06-20] MEDS: Polyethylene Glycol 3350 Powder 17 GM Packet PO SCH (08:32)
[2016-06-20] MEDS: HYDROCORTISONE 30 GM TOP SCH ×2 (08:32→21:38)
[2016-06-20] MEDS: Enoxaparin 40 MG/0.4 ML Syringe SUBCUT SCH (08:32)
[2016-06-20] MEDS: CRANBERRY EXTRACT 400 MG PO SCH ×2 (08:32→21:38)
[2016-06-20] MEDS: Docusate Sodium 100 MG Cap PO SCH ×2 (08:33→20:57)
[2016-06-20] MEDS: cefTRIAXone 2 GM in Sodium Chloride 0.9% 100 ML IV SCH (09:38)
[2016-06-20] MEDS: Sodium Chloride 0.9% 1,000 ML IV SCH (11:26)
--- NOTE | 2016-06-20 15:34 | PCM.PN ---
- General Info Date of Service: 06/20/16 Functional Status: Reports: pain controlled, tolerating diet, ambulating, urinating - Review of Systems General: Reports: No Symptoms HEENT: Reports: no symptoms Pulmonary: Reports: no symptoms Cardiovascular: Reports: No Symptoms Gastrointestinal: Reports: No symptoms Genitourinary: Reports: no symptoms Musculoskeletal: Reports: no symptoms Skin: Reports: no symptoms Neurological: Reports: No Symptoms Psychiatric: Reports: no symptoms - Patient Data Vitals - most recent: Last Vital Signs Temp 37.1 C 06/20/16 08:28 Pulse 71 06/20/16 08:30 Resp 16 06/20/16 08:28 BP 126/77 06/20/16 08:31 Pulse Ox 93 L 06/20/16 08:28 Weight - most recent: 70.942 kg I&O - last 24 hours: Intake & Output 06/20/16 06/20/16 06/20/16 06:59 14:59 22:59 Intake Total 819 225 Output Total 800 Balance 19 225 Lab Results last 24 hrs: Laboratory Results - last 24 hr 06/19/16 06/20/16 06/20/16 Range/Units 17:04 07:06 11:03 POC Glucose 236 H 142 H 218 H (83-110) mg/dL [place] Results last 24 hrs: Microbiology 06/18/16 07:39 Aerobic Blood Culture - Preliminary Blood - Venous - Lab Draw NO GROWTH AFTER 2 DAYS Anaerobic Blood Culture - Preliminary NO GROWTH AFTER 2 DAYS 06/18/16 07:23 Aerobic Blood Culture - Preliminary Blood - Venous NO GROWTH AFTER 2 DAYS Anaerobic Blood Culture - Preliminary NO GROWTH AFTER 2 DAYS Med Orders - Current: Current Medications Acetaminophen (Tylenol) 325 mg PO Q6H PRN PRN Reason: Pain Hydrocodone Bitart/Acetaminophen (Archie 325-5 Mg) 1 tab PO Q4H PRN PRN Reason: Pain (moderate 4-6) Last Admin: 06/20/16 15:12 Dose: 1 tab Al Hydroxide/Mg Hydroxide (Mag-Al Plus) 30 ml PO QID PRN PRN Reason: Heartburn Albuterol (Proventil Neb Soln) 2.5 mg NEB Q2H PRN PRN Reason: Shortness Of Breath/wheezing Artificial Tears (Isopto Tears 0.5% Ophth Soln) 0 ml EYEBOTH BID [place] Last Admin: 06/20/16 08:32 Dose: 1 drop Aspirin (Halfprin) 81 mg PO DAILY [facility] Last Admin: 06/20/16 08:29 Dose: 81 mg Bisacodyl (Dulcolax) 10 mg RECTAL DAILY PRN PRN Reason: Constipation Bisacodyl (Dulcolax) 5 mg PO DAILY PRN PRN Reason: Constipation Cholecalciferol (Vitamin D3) 1,000 units PO DAILY [facility] Last Admin: 06/20/16 08:29 Dose: 1,000 units Cyanocobalamin (Vitamin B12) 1,000 mcg PO DAILY [facility] Last Admin: 06/20/16 08:29 Dose: 1,000 mcg Dextrose/Water (Dextrose 50% In Water) 50 ml IVPUSH ASDIRECTED PRN PRN Reason: Hypoglycemia Last Admin: 06/17/16 06:49 Dose: 50 ml Docusate Sodium (Colace) 100 mg PO BID [facility] Last Admin: 06/20/16 08:33 Dose: Not Given Enoxaparin Sodium (Lovenox) 40 mg SUBCUT DAILY [facility] Last Admin: 06/20/16 08:32 Dose: 40 mg Fentanyl (Duragesic) 25 mcg TRDERM Q72H [facility] Last Admin: 06/18/16 08:22 Dose: 25 mcg Ferrous Sulfate (Ferrous Sulfate) 325 mg PO BIDMEALS [facility] Last Admin: 06/20/16 07:03 Dose: 325 mg Hydralazine HCl (Apresoline) 10 mg IVPUSH Q4H PRN PRN Reason: Hypertension Hydromorphone HCl (Dilaudid) 0.25 mg IVPUSH Q2H PRN PRN Reason: Pain (severe 7-10) Last Admin: 06/19/16 21:31 Dose: 0.25 mg Promethazine HCl 12.5 mg/ (Sodium Chloride) 50.5 mls @ 100 mls/hr IV Q6H PRN PRN Reason: Nausea/Vomiting Sodium Chloride (Normal Saline) 1,000 mls @ 50 mls/hr IV ASDIRECTED [facility] Last Admin: 06/20/16 11:26 Dose: 50 mls/hr Ceftriaxone Sodium 2 gm/ (Sodium Chloride) 100 mls @ 200 mls/hr IV Q24H [facility] Last Admin: 06/20/16 09:38 Dose: 200 mls/hr Insulin Aspart (Novolog) 0 unit SUBCUT QIDACANDBED [facility] PRN Reason: Protocol Last Admin: 06/20/16 11:25 Dose: 2 unit Isosorbide Mononitrate (Imdur) 15 mg PO DAILY [facility] Last Admin: 06/20/16 08:31 Dose: 15 mg Lactulose (Cephulac) 10 gm PO DAILY PRN PRN Reason: Constipation Levothyroxine Sodium (Levothroid) 137 mcg PO ACBREAKFAST [facility] Last Admin: 06/20/16 07:03 Dose: 137 mcg Losartan Potassium (Cozaar) 25 mg PO DAILY [facility] Last Admin: 06/20/16 08:29 Dose: 25 mg Magnesium Hydroxide (Milk Of Magnesia) 30 ml PO DAILY PRN PRN Reason: Constipation Magnesium Oxide (Magnesium Oxide) 400 mg PO DAILY [facility] Last Admin: 06/20/16 08:30 Dose: 400 mg Metoprolol Succinate (Toprol Xl) 25 mg PO DAILY [facility] Last Admin: 06/20/16 08:30 Dose: 25 mg Metoprolol Tartrate (Lopressor) 5 mg IVPUSH Q4H PRN PRN Reason: Tachycardia Miscellaneous Information (Remove Patch) 0 ea TRDERM Q72H [facility] Multivitamins (Thera) 1 each PO DAILY [facility] Last Admin: 06/20/16 08:29 Dose: 1 each Ondansetron HCl (Zofran) 4 mg IV Q6H PRN PRN Reason: Nausea/Vomiting Last Admin: 06/16/16 08:33 Dose: 4 mg Pantoprazole Sodium (Protonix) 40 mg PO DAILY@0700 [facility] Last Admin: 06/20/16 07:03 Dose: 40 mg Cranberry Extract [ (Cranberry] 400 Mg) 0 each PO BID [facility] Last Admin: 06/20/16 08:32 Dose: Not Given Hydrocortisone 30 Gm 0 each TOP BID [facility] Last Admin: 06/20/16 08:32 Dose: Not Given Liraglutide 1.2 Mg 0 each SUBCUT BEDTIME [facility] Last Admin: 06/19/16 21:35 Dose: Not Given Phenol [Phenol] 2 (Sprays) 0 each BUCCAL Q4H PRN PRN Reason: Sore Throat Polyethylene Glycol (Miralax) 17 gm PO DAILY [facility] Last Admin: 06/20/16 08:32 Dose: Not Given Senna/Docusate Sodium (Senna Plus) 1 tab PO BID PRN PRN Reason: Constipation Senna/Docusate Sodium (Senna Plus) 1 tab PO BID [facility] Last Admin: 06/20/16 08:32 Dose: Not Given Triamcinolone Acetonide (Triamcinolone Acetonide 0.1% Crm) 15 gm TOP BID PRN PRN Reason: Rash Discontinued Medications Fentanyl (Duragesic) 12 mcg TRDERM Q72H [facility] Last Admin: 06/17/16 08:44 Dose: 12 mcg Ferrous Sulfate (Ferrous Sulfate) 325 mg PO DAILY [facility] Last Admin: 06/17/16 11:19 Dose: 325 mg Gadobenate Dimeglumine (Multihance) 14 ml IVPUSH ONETIME ONE Stop: 06/17/16 09:33 Last Admin: 06/17/16 10:58 Dose: 14 ml Sodium Chloride (Normal Saline) 500 mls @ 999 mls/hr IV .BOLUS ONE Stop: 06/15/16 20:19 Last Admin: 06/15/16 19:52 Dose: 999 mls/hr Ceftriaxone Sodium 1 gm/ (Sodium Chloride) 100 mls @ 200 mls/hr IV ONETIME ONE Stop: 06/15/16 22:03 Last Admin: 06/15/16 21:43 Dose: 200 mls/hr Levofloxacin/Dextrose 500 mg/ (Premix) 100 mls @ 100 mls/hr IV ONETIME ONE Stop: 06/15/16 22:36 Last Admin: 06/15/16 22:24 Dose: 100 mls/hr Ceftriaxone Sodium 1 gm/ (Sodium Chloride) 100 mls @ 200 mls/hr IV Q24H [facility] Last Admin: 06/16/16 21:14 Dose: Not Given Sodium Chloride (Normal Saline) 1,000 mls @ 150 mls/hr IV ASDIRECTED [facility] Last Admin: 06/16/16 00:13 Dose: 150 mls/hr Ceftriaxone Sodium 1 gm/ (Sodium Chloride) 100 mls @ 200 mls/hr IV Q24H [facility] Meropenem 500 mg/ Sodium (Chloride) 100 mls @ 200 mls/hr IV Q8H [facility] Last Admin: 06/20/16 08:24 Dose: 200 mls/hr Magnesium Sulfate 2 gm/ Premix 50 mls @ 25 mls/hr IV ONETIME ONE Stop: 06/16/16 13:59 Last Admin: 06/16/16 11:02 Dose: 25 mls/hr Magnesium Sulfate 2 gm/ Premix 50 mls @ 25 mls/hr IV ONETIME ONE Stop: 06/17/16 10:29 Last Admin: 06/17/16 08:41 Dose: 25 mls/hr Magnesium Sulfate 2 gm/ Premix 50 mls @ 25 mls/hr IV ONETIME ONE Stop: 06/19/16 17:23 Last Admin: 06/19/16 16:56 Dose: 25 mls/hr Insulin Aspart (Novolog) 0 unit SUBCUT ASDIRECTED [facility] PRN Reason: Protocol Insulin Detemir (Levemir) 0 unit SUBCUT BEDTIME [facility] Last Admin: 06/17/16 22:07 Dose: 25 units Insulin Detemir (Levemir) 12.5 unit SUBCUT BID [facility] Last Admin: 06/19/16 09:49 Dose: Not Given Levothyroxine Sodium (Levothyroxine) 175 mcg PO ACBRK [facility] Last Admin: 06/17/16 06:25 Dose: Not Given Magnesium Oxide (Magnesium Oxide) 400 mg PO BID [facility] Last Admin: 06/16/16 21:44 Dose: 400 mg Magnesium Sulfate (Pharmacy To Dose - Magnesium Replacement) 1 dose .XX ASDIRECTED [facility] Ondansetron HCl (Zofran) 4 mg IVPUSH ONETIME ONE Stop: 06/15/16 23:28 Last Admin: 06/15/16 23:33 Dose: 4 mg Potassium Chloride (Pharmacy To Dose - Potassium Replacement) 1 dose .XX ASDIRECTED [facility] Sodium Chloride (Saline Flush) 10 ml FLUSH ASDIRECTED PRN PRN Reason: Keep Vein Open Last Admin: 06/15/16 19:52 Dose: 10 ml Sodium Chloride (Saline Flush) 10 ml FLUSH ONETIME PRN PRN Reason: Keep Vein Open Stop: 06/17/16 16:00 Last Admin: 06/17/16 10:59 Dose: 10 ml - Exam Quality Assessment: DVT prophylaxis General: alert, oriented, cooperative, no acute distress HEENT: Pupils equal, Pupils reactive, EOMI Neck: supple, trachea midline, no JVD Lungs: Normal respiratory effort Cardiovascular: Regular Rate Abdomen: bowel sounds present, soft, no tenderness, no distension (Female) Exam: Deferred Back Exam: normal inspection Extremities: normal pulses Skin: warm Neurological: no new focal deficit Psy/Mental Status: alert, normal affect, normal mood - Problem List Review Problem List Initiated/Reviewed/Updated: Yes - My Orders Last 24 Hours: My Active Orders 06/20/16 10:00 cefTRIAXone [Rocephin] 2 gm Sodium Chloride 0.9% [Normal Saline] 100 ml IV Q24H - Plan Plan:: Impression: Abdominal pain, MRCP with pancreatic mass Decision for evaluation and treatment, TBD UTI Continue Rocephin Hepato-biliary Disease Assessement by general surgery, will require follow up as outpatient Hypoglycemia with adjustment of home insulin Generally occurring in the AM Depression, seen by psychiatry without full assessment Patient did not fully disclose current status with of spouse and its impact Plan: Resume insulin regime at DC, continue SS Continue treatment Daily labs DC early next week SM/CM DC planning in progress LOS>96 hours, treatment and DC plan ongoing. Unfortunate news regarding pancreatic mass, decision for eval/tx will be done after DC. LOS>96 hours re:treatment
[2016-06-20] MEDS: Liraglutide 1.2 MG SUBCUT SCH (21:38)
[2016-06-20] MEDS: HYDROmorphone 0.5 MG/0.5 ML Syringe IVPUSH PRN (22:57)
[2016-06-21] MEDS: Acetaminophen/HYDROcodone 325-5 MG Tab PO PRN ×2 (04:30→09:37)
[2016-06-21] MEDS: Pantoprazole 40 MG Tab.CR PO SCH (06:26)
[2016-06-21] MEDS: fentaNYL 25 MCG/HR Transdermal Patch TRDERM SCH ×2 (06:26→06:55)
[2016-06-21] MEDS: Ferrous Sulfate 325 MG Tab PO SCH (06:26)
[2016-06-21] MEDS ORDERED: Magnesium Sulfate/Water 2 GM in Premix Bag 1 BAG IV ONE (08:09)
[2016-06-21 08:10] VITALS: BP 113/63
--- NOTE | 2016-06-21 08:38 | PCM.DCSUM1 ---
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 Sodium (Protonix) 40 mg PO DAILY@0700 [facility] Last Admin: 06/21/16 06:26 Dose: 40 mg Cranberry Extract [ (Cranberry] 400 Mg) 0 each PO BID [facility] Last Admin: 06/21/16 09:31 Dose: Not Given Hydrocortisone 30 Gm 0 each TOP BID [facility] Last Admin: 06/21/16 09:32 Dose: Not Given Liraglutide 1.2 Mg 0 each SUBCUT BEDTIME [facility] Last Admin: 06/20/16 21:38 Dose: Not Given Phenol [Phenol] 2 (Sprays) 0 each BUCCAL Q4H PRN PRN Reason: Sore Throat Polyethylene Glycol (Miralax) 17 gm PO DAILY [facility] Last Admin: 06/21/16 09:22 Dose: 17 gm Potassium Chloride (Pharmacy To Dose - Potassium Replacement) 1 dose .XX ASDIRECTED [facility] Senna/Docusate Sodium (Senna Plus) 1 tab PO BID PRN PRN Reason: Constipation Senna/Docusate Sodium (Senna Plus) 1 tab PO BID [facility] Last Admin: 06/21/16 09:29 Dose: 1 tab Sodium Chloride (Saline Flush) 10 ml FLUSH ASDIRECTED PRN PRN Reason: Keep Vein Open Last Admin: 06/15/16 19:52 Dose: 10 ml Sodium Chloride (Saline Flush) 10 ml FLUSH ONETIME PRN PRN Reason: Keep Vein Open Stop: 06/17/16 16:00 Last Admin: 06/17/16 10:59 Dose: 10 ml Triamcinolone Acetonide (Triamcinolone Acetonide 0.1% Crm) 15 gm TOP BID PRN PRN Reason: Rash *Q Meaningful Use (DIS) - VTE *Q VTE Criteria *Q: - Stroke *Q Stroke Criteria *Q: - AMI *Q AMI Criteria *Q:
[2016-06-21] MEDS ORDERED: Furosemide 40 MG/4 ML VIAL IVPUSH ONE (09:00)
[2016-06-21] MEDS: Polyethylene Glycol 3350 Powder 17 GM Packet PO SCH (09:22)
[2016-06-21] MEDS: Enoxaparin 40 MG/0.4 ML Syringe SUBCUT SCH (09:22)
[2016-06-21] MEDS: Hypromellose 0.5% Ophth Soln 15 ML Bottle EYEBOTH SCH (09:22)
[2016-06-21] MEDS: cefTRIAXone 2 GM in Sodium Chloride 0.9% 100 ML IV SCH (09:27)
[2016-06-21] MEDS: Isosorbide Mononitrate 30 MG Tab.ER PO SCH (09:27)
[2016-06-21] MEDS: Aspirin 81 MG Tab.EC PO SCH (09:29)
[2016-06-21] MEDS: Docusate Sodium 100 MG Cap PO SCH (09:29)
[2016-06-21] MEDS: Cyanocobalamin (Vitamin B12) 1,000 MCG Tab PO SCH (09:29)
[2016-06-21] MEDS: Cholecalciferol (Vitamin D3) 1,000 Unit Tab PO SCH (09:29)
[2016-06-21] MEDS: Magnesium Oxide 400 MG Tab PO SCH (09:29)
[2016-06-21] MEDS: Metoprolol Succinate 25 MG Tab.ER PO SCH (09:29)
[2016-06-21] MEDS: Multivitamins,Therapeutic Tab PO SCH (09:29)
[2016-06-21] MEDS: Losartan 25 MG Tab PO SCH (09:30)
[2016-06-21] MEDS: Insulin Aspart 100 Units/ML 3 ML Pen SUBCUT SCH ×2 (09:30→11:44)
[2016-06-21] MEDS: CRANBERRY EXTRACT 400 MG PO SCH (09:31)
[2016-06-21] MEDS: HYDROCORTISONE 30 GM TOP SCH (09:32)
== END 2016-06-21 12:20 | DRG 690 ==
LOC: SUPCPDRO 19:16 → JD.ED 19:16 → JD.MS 06-16 00:27
PROVIDERS: ADMIT Internal Medicine; ATTEND Internal Medicine
DX: N39.0 Urinary tract infection, site not specified (principal); I25.810 Atherosclerosis of coronary artery bypass graft(s) without angina pectoris; K86.9 Disease of pancreas, unspecified; R33.9 Retention of urine, unspecified; E78.00 Pure hypercholesterolemia, unspecified; Z95.1 Presence of aortocoronary bypass graft; R32 Unspecified urinary incontinence; E11.9 Type 2 diabetes mellitus without complications; B96.20 Unspecified Escherichia coli [E. coli] as the cause of diseases classified elsewhere; K83.9 Disease of biliary tract, unspecified; R10.9 Unspecified abdominal pain; E11.65 Type 2 diabetes mellitus with hyperglycemia; Z79.4 Long term (current) use of insulin; E80.6 Other disorders of bilirubin metabolism; F32.9 Major depressive disorder, single episode, unspecified; I10 Essential (primary) hypertension; E78.5 Hyperlipidemia, unspecified; K21.9 Gastro-esophageal reflux disease without esophagitis; G89.29 Other chronic pain; M54.9 Dorsalgia, unspecified; E03.9 Hypothyroidism, unspecified; R26.9 Unspecified abnormalities of gait and mobility; M62.50 Muscle wasting and atrophy, not elsewhere classified, unspecified site; Z88.0 Allergy status to penicillin; Z88.7 Allergy status to serum and vaccine; Z88.8 Allergy status to other drugs, medicaments and biological substances; Z88.6 Allergy status to analgesic agent; Z91.030 Bee allergy status; Z91.011 Allergy to milk products; Z79.82 Long term (current) use of aspirin; Z79.899 Other long term (current) drug therapy; Z66 Do not resuscitate
CPT/HCPCS: 36415; 51702; 51798; 74022; 74177; 80053; 81001; 82977; 83605; 85025; 86140; 87040 ×2; 87086; 93005; 96361; 96365; 96367; 96375; 99285; J0696; J1956; J2405; J7030; J7040 ×2; J7050; 74183; 74183-26; 80048; 80074; 80076; 82150; 82962; 83690; 83735; 87077; 87186; 87641; 94761; 97110-GP; 97161-GP; 97165-GO; 99284; A9270-GY; A9577; J1170; J1650; J1815-GY; J1940; J2185; J3475; J7060

== ENCOUNTER 2016-06-27 04:57 | Emergency (ER) | payer MEDICARE, BC, MEDICAID ==
[2016-06-27] MEDS ORDERED: HYDROmorphone 1 MG/ML Syringe IVPUSH ONE (05:23)
[2016-06-27] MEDS ORDERED: HYDROmorphone 1 MG/ML Syringe IM ONE ×2 (05:47→06:59)
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
--- NOTE | 2016-06-27 10:35 | CR ---
Chest: Portable view of the chest was obtained. Comparison: Previous chest x-ray of 06/15/16. Mild areas of atelectasis are noted within both lung bases with superimposed scarring. Upper lungs are clear. Old healed right upper rib fracture is noted. Heart size is normal. Tortuous thoracic aorta is seen. Sternotomy for CABG is noted. Previous cholecystectomy is noted. Impression: 1. Atelectasis with superimposed linear scarring within both lung bases. 2. Other incidental findings. Diagnostic code #2
[2016-06-27 11:39] VITALS: BP 129/69
== END 2016-06-27 09:10 | disposition home or self-care (01) ==
LOC: JD.ED 04:57 → SUPCPDRO 04:57 → JD.ED 09:10
DX: M17.11 Unilateral primary osteoarthritis, right knee (principal); R10.30 Lower abdominal pain, unspecified; E78.00 Pure hypercholesterolemia, unspecified; I10 Essential (primary) hypertension; K21.9 Gastro-esophageal reflux disease without esophagitis; F32.9 Major depressive disorder, single episode, unspecified; E11.9 Type 2 diabetes mellitus without complications; E03.9 Hypothyroidism, unspecified; Z88.0 Allergy status to penicillin; Z88.8 Allergy status to other drugs, medicaments and biological substances; Z91.011 Allergy to milk products; Z79.82 Long term (current) use of aspirin; Z79.899 Other long term (current) drug therapy; Z90.49 Acquired absence of other specified parts of digestive tract; Z98.49 Cataract extraction status, unspecified eye; Z95.1 Presence of aortocoronary bypass graft; Z98.51 Tubal ligation status; Z88.7 Allergy status to serum and vaccine; Z91.030 Bee allergy status; Z88.6 Allergy status to analgesic agent
CPT/HCPCS: 36415; 36600; 71010; 80053; 82553; 82803; 83880; 84484; 85025; 85379; 96372; 99285; J1170; 99284